=== PATIENT | male | born 1960 | race Caucasian/White ===

== ENCOUNTER 2021-11-17 13:30 | Oncology outpatient (recurring) (ONCR) | payer OTHER, SELFPAY | END 2021-12-13 23:59 | disposition home or self-care (01) | PROVIDERS: PCP Family Medicine; Visit Provider Internal Medicine Medical Oncology | DX: E83.110 Hereditary hemochromatosis (principal); D70.9 Neutropenia, unspecified; Z79.899 Other long term (current) drug therapy ==

== ENCOUNTER 2021-11-21 00:53 | Observation (INO) | payer OTHER, SELFPAY ==
[2021-11-21] VITALS (19 sets, daily range): BP systolic 89–201; BP diastolic 61–112; PULSE 82–93; RESP 12–18; TEMP 36.5–37.7; O2SAT 92–98; BMI 29.0
--- NOTE | 2021-11-21 01:18 | CTR_ITS ---
PROCEDURE INFORMATION: Exam: CT Abdomen And Pelvis Without Contrast Exam date and time: 11/21/2021 1:43 AM Age: 60 years old Clinical indication: Abdominal pain; Localized; Right lower quadrant (rlq); Additional info: Rlq pain TECHNIQUE: Imaging protocol: Computed tomography of the abdomen and pelvis without contrast. Radiation optimization: All CT scans at this facility use at least one of these dose optimization techniques: automated exposure control; mA and/or kV adjustment per patient size (includes targeted exams where dose is matched to clinical indication); or iterative reconstruction. COMPARISON: CR XR chest 2V* [id number] 09/07/2020 12:03 PM RADIATION DOSE METRICS: Total DLP (mGy-cm): 1442.9 FINDINGS: Lungs: The visualized lung bases demonstrate no focal airspace opacification or pleural effusion. Heart: Trace coronary artery calcifications noted. Liver: The liver is normal in size and contour. Gallbladder and bile ducts: The gallbladder is distended with normal wall thickness and does not demonstrate calcified gallstones. No intra- or extra-hepatic biliary ductal dilatation. Pancreas: The pancreas appears normal. Spleen: The spleen appears normal. Adrenal glands: The adrenals appear normal. Kidneys and ureters: The kidneys empty into non-dilated ureters. No renal or ureteral stones are identified. No perinephric or periureteral fat tissue stranding is identified. Stomach and bowel: The stomach is appropriately distended and without wall abnormalities. The small bowel loops are not abnormally dilated. The large bowel loops are not abnormally dilated. Appendix: 6 mm appendicoliths noted the base of the appendix. Possible additional 7 mm appendicoliths in the proximal portion of the appendix. The appendix is abnormally dilated measuring up to approximately 16 mm in diameter in the proximal portion. Appendiceal wall thickening in the proximal portion. Periappendiceal fat stranding. No adjacent fluid or free air identified. Intraperitoneal space: No ascites. Vasculature: The aorta is nonaneurysmal. The IVC appears normal. Lymph nodes: There are no enlarged lymph nodes. Urinary bladder: The bladder is distended and demonstrates no focal contour abnormality. Reproductive: The prostate is unremarkable. The seminal vesicles are unremarkable. Bones/joints: Review of the bone windows demonstrates no significant abnormality. Soft tissues: Unremarkable. CT/CT abdomen pelvis wo con [id number] IMPRESSION: Findings consistent with acute appendicitis. Appendicoliths noted at the base and proximal portion of the appendix. No signs of rupture. COMMENTS: Evaluation of solid organs and vascular structures is limited as no IV contrast was administered.
[2021-11-21 01:44] LABS: Basophils % 0.2 %; Eosinophils % 0.1 %; Hematocrit 49.5 % (42.0-52.0); Hemoglobin 17.7 g/dL (11.7-16.6); Lymphocytes # 0.9 10^3/uL (0.8-4.8); Lymphocytes % 7.1 %; Mean Corpuscular HGB Conc 35.8 g/dL (30.0-36.0); Mean Corpuscular Hemoglobin 33.3 pg (28.0-34.0); Mean Corpuscular Volume 93.2 fl (80-94); Mean Platelet Volume 9.8 fL (7.4-10.4); Monocytes # 0.7 10^3/uL (0.2-0.9); Monocytes % 5.3 %; Neutrophils # 10.67 10^3/uL (1.8-7.7); Neutrophils % 87.1 %; Nucleated Red Blood Cells % 0 %; Platelet Count 224 10^3/cmm (130-400); Red Blood Count 5.31 10^6/uL (4.1-5.3); Red Cell Distribution Width 12.6 % (12.1-15.1); White Blood Count 12.3 10^3/uL (4.0-10.0)
--- NOTE | 2021-11-21 01:49 | W.ED.ABDPA2 ---
HPI - Abdominal Pain General: Chief Complaint: Abdominal Pain Stated Complaint: ABD/Side pain/fever Time Seen by Provider: 11/21/21 01:07 Source: patient and family History of Present Illness: 60-year-old gentleman with no prior history of belly surgery. He presents with significant right-sided belly pain. He notes that he had some pain last night, this increased today, and he started to vomit after moravian. He has had several episodes of vomiting. No fever. He has chronic diarrhea on and off, so there has been no change in stool. Pain localized to the right lower quadrant. he is quite tender. MD elicited complaint: abdominal pain Pertinent past history: none Onset (ago): hour(s) (24) Location: RLQ Severity: moderate Radiation: RLQ Migration to: no migration Exacerbating factors: nothing Relieving factors: nothing Associated Symptoms: Reports loose stools (Chronic), nausea and vomiting; Denies coffee ground emesis, constipation, dyspepsia, fever(s) and fecal incontinence Review of Systems Const: Denies: fever(s) Card: Denies: chest pain, palpitations or irregular heart rhythm Resp: Denies: dyspnea, productive cough or non-productive cough GI: Reports: nausea and vomiting; Denies: coffee ground emesis, constipation or fecal incontinence Musc: Denies: back pain PFSH ED PFSH: Medical History 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 Surgical History H/O arthroscopic knee surgery H/O eye surgery Left eye - muscle in eye ajusted Family History Mother Cancer Lymphoma Hypertension Denies family history of Diabetes CAD (coronary artery disease) Clotting disorder Dementia Hyperlipidemia Psychiatric illness Chronic kidney disease (CKD) Suicide Anesthesia complication Bleeding disorder Lung disease Stroke Social History Smoking and tobacco status: never smoked Alcohol intake: current Alcohol intake frequency: holidays/special occasions only Physical Exam Const: GENERAL APPEARANCE: cooperative, in distress (Mild from pain) and ill appearing ORIENTATION/CONSCIOUSNESS: Yes awake, Yes oriented to person, Yes oriented to place and Yes oriented to time HENMT: COMMON NORMALS: normocephalic, atraumatic and Normal external nose present HEAD & SCALP: normocephalic and atraumatic FACE & SINUS: normal facial exam NOSE: Normal external nose present Eye: COMMON NORMALS: Equal, round and reactive pupils present and EOMs intact bilaterally PUPIL: Yes Equal, round and reactive pupils present Neck/C-Spine: GENERAL: Yes trachea midline Chest: CHEST: Yes Symmetrical chest wall rise Resp: COMMON NORMALS: normal respiratory effort and No use of accessory muscles Cardio: COMMON NORMALS: regular rate and regular rhythm RATE: regular rate RHYTHM: regular rhythm GI: INSPECTION: Yes abdominal distension PALPATION: Yes Firmness to palpation present (GI) and Yes Tenderness to palpation present (GI) Details: RLQ : COMMON NORMALS: Yes no CVA tenderness BLADDER/KIDNEY EXAM: Yes no CVA tenderness Back/Pelvis: COMMON NORMALS: no CVA tenderness Extremity: COMMON NORMALS: no pedal edema Neuro: SENSORIUM/ORIENTATION: Yes oriented to person, Yes oriented to place and Yes oriented to time Course Vital Signs: Vital signs: Vital Signs Temperature 98.3 F 11/21/21 01:01 Pulse Rate 87 11/21/21 03:30 Respiratory Rate 16 11/21/21 03:30 Blood Pressure 139/83 11/21/21 03:30 Pulse Oximetry 98 11/21/21 03:30 MDM - Abdominal Pain Medical Decision Making 60-year-old gentleman with right lower quadrant pain, white blood cell count of 12.3. He is hemodynamically stable. In fact, he is a bit hypertensive. Blood pressure improved to 140/[address] consistent with acute appendicitis with a 16mm dilated appendix. No signs of rupture. Surgeon is aware. He will be observed. Lab Data : 11/21/21 01:30 11/21/21 03:00 Labs/Radiology: Radiology Impressions Abdomen/Pelvis CT 11/21/21 01:18 IMPRESSION: Findings consistent with acute appendicitis. Appendicoliths noted at the base and proximal portion of the appendix. No signs of rupture. COMMENTS: Evaluation of solid organs and vascular structures is limited as no IV contrast was administered. ADDENDUM: 11/21/21 0328 THIS REPORT CONTAINS FINDINGS THAT MAY BE CRITICAL TO PATIENT CARE. The findings were verbally communicated via telephone conference with MARIO Mendoza at 3:26 AM CDT on 11/21/2021. The findings were acknowledged and understood. Laboratory Results WBC 12.3 10^3/uL (4.0-10.0) H 11/21/21 01:30 RBC 5.31 10^6/uL (4.1-5.3) H 11/21/21 01:30 Hgb 17.7 g/dL (11.7-16.6) H 11/21/21 01:30 Hct 49.5 % (42.0-52.0) 11/21/21 01:30 MCV 93.2 fl (80-94) 11/21/21 01:30 MCH 33.3 pg (28.0-34.0) 11/21/21 01:30 MCHC 35.8 g/dL (30.0-36.0) 11/21/21 01:30 RDW 12.6 % (12.1-15.1) 11/21/21 01:30 Plt Count 224 10^3/cmm (130-400) 11/21/21 01:30 MPV 9.8 fL (7.4-10.4) 11/21/21 01:30 Neut % (Auto) 87.1 % 11/21/21 01:30 Lymph % (Auto) 7.1 % 11/21/21 01:30 [place] % (Auto) 5.3 % 11/21/21 01:30 Eos % (Auto) 0.1 % 11/21/21 01:30 Baso % (Auto) 0.2 % 11/21/21 01:30 Neut # (Auto) 10.67 10^3/uL (1.8-7.7) H 11/21/21 01:30 Lymph # (Auto) 0.9 10^3/uL (0.8-4.8) 11/21/21 01:30 [place] # (Auto) 0.7 10^3/uL (0.2-0.9) 11/21/21 01:30 Eos # (Auto) 0.0 10^3/uL (0.0-0.8) 11/21/21 01:30 Baso # (Auto) 0.0 10^3/uL (0.0-0.1) 11/21/21 01:30 Nucleated RBC % (auto) 0 % 11/21/21 01:30 Nucleated RBCs # 0.0 /100WBC 11/21/21 01:30 Sodium Cancelled 11/21/21 01:30 Potassium 4.7 mmol/L (3.5-5.1) 11/21/21 03:00 Chloride 99 mmol/L (98-107) 11/21/21 03:00 Carbon Dioxide 26 mmol/L (22-29) 11/21/21 03:00 Anion Gap 14.7 (5-19) 11/21/21 03:00 BUN 10 mg/dL (8-23) 11/21/21 03:00 Creatinine 0.8 mg/dL (0.7-1.2) 11/21/21 03:00 GFR Calculation 98.3 mL/min (90-130) 11/21/21 03:00 Glucose Cancelled 11/21/21 01:30 Calculated Osmolality Cancelled 11/21/21 01:30 Lactate 1.5 mmol/L (0.5-2.2) 11/21/21 01:30 Calcium 8.7 mg/dL (8.5-10.5) 11/21/21 03:00 Total Bilirubin 0.6 mg/dL (0.15-1.2) 11/21/21 03:00 AST Cancelled 11/21/21 01:30 ALT Cancelled 11/21/21 01:30 Alkaline Phosphatase 88 IU/L (40-130) 11/21/21 03:00 C-Reactive Protein Cancelled 11/21/21 01:30 Total Protein 7.0 g/dL (6.6-8.7) 11/21/21 03:00 Albumin 4.3 g/dL (3.5-5.2) 11/21/21 03:00 Globulin 2.7 g/dL (1.3-4.6) 11/21/21 03:00 Lipase Cancelled 11/21/21 01:30 Discharge Plan Discharge Condition: Stable Prescriptions: No Action No Known Home Medications 0RF Referrals: Landen Schofield MD [Primary Care Provider] - Coding Level of Care Code ED Tire Balancer for Chg Fwd Exam Comprehensive
[2021-11-21] MEDS: morphine 4 mg/mL SDV 1 mL IVP ×2 (01:53→05:26)
[2021-11-21] MEDS: ondansetron 2 mg/ML SDV 2 mL 4 MG IVP (01:53)
[2021-11-21] MEDS: sodium chloride 0.9% 1,000 ML 999 ML IV (01:54)
[2021-11-21 02:09] LABS: Lactate (Lactic Acid level) 1.5 mmol/L (0.5-2.2)
[2021-11-21 03:22] LABS: Alanine Aminotransferase 54 U/L (0-41); Albumin Level 4.3 g/dL (3.5-5.2); Alkaline Phosphatase 88 IU/L (40-130); Anion Gap 14.7 (5-19); Aspartate Amino Transferase 41 U/L (0-40); Blood Urea Nitrogen 10 mg/dL (8-23); C Reactive Protein 11.2 mg/L (0.0-4.9); Calcium 8.7 mg/dL (8.5-10.5); Carbon Dioxide 26 mmol/L (22-29); Chloride 99 mmol/L (98-107); Globulin 2.7 g/dL (1.3-4.6); Glomerular Filtration Rate 98.3 mL/min (90-130); Glucose 118 mg/dL (65-115); Lipase 186 U/L (13-60); Osmolality Calculated 280 mOsm/kg (285-295); Potassium 4.7 mmol/L (3.5-5.1); Sodium 135 mmol/L (136-145); Total Bilirubin 0.6 mg/dL (0.15-1.2)
--- NOTE | 2021-11-21 03:30 | ECG_ITS ---
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 Measurements Intervals [place] Rate: 87 P: 51 TX: 127 QRS: -16 QRSD: 110 T: 20 QT: 344 QTc: 415 Interpretive Statements SINUS RHYTHM INCOMPLETE RIGHT BUNDLE BRANCH BLOCK [90+ ms QRS DURATION, TERMINAL R IN V1/V2, 40+ ms S IN I/aVL/V4/V5/V6] No previous ECG available for comparison Electronically Signed On 11-21-2021 21:34:38 CDT by Richard Gordon M.D. [id number]
[2021-11-21] MEDS: enalaprilat 1.25 mg/mL Inj IVP (03:36)
[2021-11-21] MEDS: piperacillin-tazobactam 3.375 GM in sodium chloride 0.9% (plus) 100 ML IV (04:02)
[2021-11-21] MEDS: lactated ringers 1,000 ML 125 ML IV ×4 (05:27→22:03)
--- NOTE | 2021-11-21 05:50 | PM.HP ---
Providers/Chief Complaint Admitting Physician: Jose Rios MD Primary Care Provider: Landen Schofield MD Chief Complaint: ABD/Side pain/fever History of Present Illness Mr. Roly Cabral Jr is a pleasant 60 year old male presents to the emergency department with acute onset of abdominal pain that started about 8:00 in the morning when he went to gnosticism yesterday, pain was mostly sharp in nature and not being referred and was more on the right side. Associated with nausea and vomiting and low-grade temperature and denies any dysuria or change in bowel habit, as the pain got worse came to the emergency department and blood work showed leukocytosis of 12,000+ slight elevation of AST and ALT. CT scan of the abdomen pelvis was obtained and showed acute appendicitis Findings consistent with acute appendicitis. Appendicoliths noted at the base and proximal portion of the appendix. No signs of rupture. Patient is otherwise healthy except for recently diagnosed by high blood pressure and he did have eye surgery in the past. He never had a colonoscopy but he gets the stool studies every year. Denies history of colon cancer in the family General surgery was consulted for further evaluation management Review of Systems General: Reports: 10 or more systems reviewed and unremarkable except in HPI and below Medications/Allergies Home Medications Medication Instructions Recorded Confirmed Last Taken Type No Known Home Medications 11/15/21 11/15/21 Unknown History Allergies Allergy/AdvReac Type Severity Reaction Status Date / Time No Known Allergies Allergy Verified 11/14/21 11:34 PFSH Acute PFSH: Medical History 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 Surgical History H/O arthroscopic knee surgery H/O eye surgery Left eye - muscle in eye ajusted Family History Mother Cancer Lymphoma Hypertension Denies family history of Diabetes CAD (coronary artery disease) Clotting disorder Dementia Hyperlipidemia Psychiatric illness Chronic kidney disease (CKD) Suicide Anesthesia complication Bleeding disorder Lung disease Stroke Social History Smoking and tobacco status: never smoked Alcohol intake: current Alcohol intake frequency: holidays/special occasions only Vitals/I&O/Wt Last Vital Signs Temp 98.7 F 11/21/21 04:59 Pulse 85 11/21/21 04:59 Resp 18 11/21/21 05:26 BP 145/91 11/21/21 04:59 Pulse Ox 97 11/21/21 05:26 11/20/21 11/20/21 11/21/21 14:59 22:59 06:59 Intake Total 100 / 100 Balance 100 / 100 Weight last 48 hrs Weight 180 lb Physical Exam Const: COMMON NORMALS: no acute distress and patient oriented x3 GENERAL APPEARANCE: cooperative ORIENTATION/CONSCIOUSNESS: Yes awake, Yes oriented to person, Yes oriented to place and Yes oriented to time HENMT: COMMON NORMALS: normocephalic HEAD & SCALP: normocephalic Eye: COMMON NORMALS: Equal, round and reactive pupils present and no scleral icterus PUPIL: Yes Equal, round and reactive pupils present Lymph: LYMPHATIC: no lymphadenopathy noted Chest: COMMONS NORMALS: normal inspection of the chest Resp: COMMON NORMALS: normal respiratory effort and clear to auscultation bilaterally AUSCULTATION: clear to auscultation bilaterally Cardio: COMMON NORMALS: S1 normal heart sound present and S2 normal heart sound present; negative for No murmurs present (Cardio) HEART SOUNDS: S1 normal heart sound present and S2 normal heart sound present GI: COMMON NORMALS: Soft to palpation; negative for No hepatosplenomegaly present INSPECTION: Yes normal to inspection PALPATION: Yes Soft to palpation, No Firmness to palpation present (GI), Yes Tenderness to palpation present (GI) Details: RLQ (With localized rigidity and guarding at McBurney's point), No Guarding due to palpation present (GI), No Rigid due to palpation and No No hepatosplenomegaly present Neuro: COMMON NORMALS: patient oriented x3 SENSORIUM/ORIENTATION: Yes oriented to person, Yes oriented to place and Yes oriented to time Psych: COMMON NORMALS: mental status grossly normal Skin: COMMON NORMALS: no rashes or lesions noted GENERAL SKIN EXAM: no rashes or lesions noted Data : 11/21/21 01:30 11/21/21 03:00 A&P Assessment and plan (1) Acute appendicitis: After thorough history physical examination and reviewing the chart and images with my personal interpretion, I counseled the patient for laparoscopic appendectomy possible open. Indications, risks, benefits and alternatives were all discussed with the patient and did agree to proceed. Rationale was carefully and clearly discussed with the patient.Appropriate informed consent have been reviewed and signed Patient was advised to have a colonoscopy down the road after he recovers Status: Acute Attestations Medical Necessity Statement*: Observation status for perioperative care Coding Level of Care Code Acute Hogshead Stripper for [facility] Fwd Diagnoses Acute appendicitis K35.80
[2021-11-21] MEDS: sodium chloride 0.9% 1,000 ML 30 ML (06:35)
--- NOTE | 2021-11-21 06:37 | ANES.PREANE2 ---
Pre-Anesthetic Assessment Height/Weight: Height 1.68 m Weight 81.647 kg Temp Pulse Resp BP Pulse Ox 99.8 F H 93 18 127/82 95 11/21/21 06:32 11/21/21 06:32 11/21/21 06:32 11/21/21 06:32 11/21/21 06:32 Operation Date: 11/21/21 09:15 Proposed Procedures p Laparoscopic Appendectomy(Not Applicable) - Jose Rios MD Familial anesthetic complications: None Was Beta [place] taken within 24 hours: N/A Was Clonidine taken within 24 hours: N/A Last intake: Intake Last Liquid Date 11/20/21 Last Liquid Time 23:00 Last Solid Date 11/20/21 Last Solid Time 09:00 Social No alcohol and No tobacco Exam alert, oriented x 3, clear to auscultation bilaterally and regular rate & rhythm Airway Submandibular: within normal limits Cervical ROM: within normal limits Mallampati: Class II Dentition: full Comments: Comments: James CV/HEM hemachromatosis GI acute abdomen Anesthetic Plan ASA status: 2 Anesthesia: General Medications/Allergies Home Medications Medication Instructions Recorded Confirmed Last Taken Type No Known Home Medications 11/15/21 11/15/21 Unknown History Allergies Allergy/AdvReac Type Severity Reaction Status Date / Time No Known Allergies Allergy Verified 11/14/21 11:34 Current Medications Generic Name Dose Route Start Last Admin Trade Name Freq PRN Reason Stop Dose Admin Lactated Ringer's 1,000 mls @ 125 mls/hr 11/21/21 04:59 11/21/21 05:27 Lactated Ringers IV 125 mls/hr .Q8H ALMAZ Administration Morphine Sulfate 4 mg 11/21/21 04:59 11/21/21 05:26 Morphine 4 Mg/Ml Sdv 1 Ml IVP 4 mg Q2H PRN Administration SEVERE PAIN PFSH Anesthesia Medical History 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 Surgical History H/O arthroscopic knee surgery H/O eye surgery Left eye - muscle in eye ajusted Family History Mother Cancer Lymphoma Hypertension Denies family history of Diabetes CAD (coronary artery disease) Clotting disorder Dementia Hyperlipidemia Psychiatric illness Chronic kidney disease (CKD) Suicide Anesthesia complication Bleeding disorder Lung disease Stroke Social History Smoking and tobacco status: never smoked Alcohol intake: current Alcohol intake frequency: holidays/special occasions only Data Anesthesia : 11/21/21 01:30 11/21/21 03:00 Short CBC 11/21/21 Range/Units 01:30 WBC 12.3 H (4.0-10.0) 10^3/uL Hgb 17.7 H (11.7-16.6) g/dL Hct 49.5 (42.0-52.0) % MCV 93.2 (80-94) fl Plt Count 224 (130-400) 10^3/cmm Neut % (Auto) 87.1 % Neut # (Auto) 10.67 H (1.8-7.7) 10^3/uL BMP 11/21/21 11/21/21 01:30 03:00 Sodium Cancelled 135 L Potassium Cancelled 4.7 Chloride Cancelled 99 Carbon Dioxide Cancelled 26 BUN Cancelled 10 Creatinine Cancelled 0.8 Glucose Cancelled 118 H Calcium Cancelled 8.7 Liver Function 11/21/21 11/21/21 Range/Units 01:30 03:00 Total Bilirubin Cancelled 0.6 AST Cancelled 41 H ALT Cancelled 54 H Alkaline Phosphatase Cancelled 88 Albumin Cancelled 4.3 Coags 11/21/21 11/21/21 01:30 03:00 C-Reactive Protein Cancelled 11.2 H Cardiac Studies: No Data to Display
--- NOTE | 2021-11-21 06:50 | SUR.PHASEI ---
0630 PT TO OPS BAY 8 PT AWAKE ALERT AMBULATED TO BED, VSS IV TO LT WRIST #18 PATENT . PT VSS STABLE. BED LOCKED SIDE RAILS UP X2 CALL LIGHT WITHIN REACH, CONTINOUS O2 SAT PROBE ON. DR ACOSTA AT BEDSIDE. 0645 PT CARE ASSUMED BY GRAHAM BECKMAN IN OPS SURGERY, PT DOZING WITHOUT COMPLAINT.
[2021-11-21] MEDS: acetaminophen 1,000 MG/100 ML PIGGYBACK 400 MG IV (07:47)
[2021-11-21] MEDS: lidocaine 2% INJ 20 mL INJECTION (08:08)
--- NOTE | 2021-11-21 08:45 | P.OP_ITS ---
Operative Report Date of procedure: November 21, 2021 Pre-op diagnosis: Preop Diagnosis Acute appendicitis Post-op diagnosis: Gangrenous retrocecal appendicitis Procedure done: Laparoscopic appendectomy Specimens removed/disposition: Appendix Surgeon: Jose Rios MD Treasury Specialist: Surgical rubi Dc Located the nurse Venkatesh Quevedo Anesthesia: General (TRISH Ramirez) Estimated blood loss (mL): 10 IV fluids (mL): 1,000 Procedure: Patient after being identified in the holding area and asked to void urine, and informed consent per chart ,patient was then taken back to the OR placed in supine position got intubated by anesthesia left arm was tucked tucked ,Timeout was done verifying the patient's name/date of /planned procedure and destination after the procedure, all were in agreement., preoperative antibiotics administered per protocol. prep and drape of the abdomen was done under the usual sterile technique. Started by longitudinal skin incision supraumbilical using a De La Fuente trocar tech nique safe entry to the abdominal cavity was achieved verified by using 10 mm zero degree laparoscopy, switched to a 30? scope under direct visualization a suprapubic 5 mm trocar was inserted followed by another 5 mm trocar inserted in the left lower quadrant.I was able to position the patient in an T Rebollar and left side down, dissection of the prececal acutely inflamed appendix with gangrenous changes towards the distal two thirds of the appendix there was some adhesions towards the lateral pelvic wall that was taken down by sharp and blunt dissection, attention was deviated to the healthy base of the appendix where I had to switch the camera to 5 mm 30? scope got introduced through the left lower quadrant and through the De La Fuente trocar under direct visualization a GI stapler 45 mm blue load was applied at the healthy part of the base of the appendix, and an Endoloop PDS was applied onto the mesoappendix for control , the appendix was then retrieved in an Endo Catch bag, final survey was done of the abdomen and pelvis , irrigation with warm saline, and suction was obtained, were mercury fluid like in the pelvis due to reaction from the inflamed appendix. Few 5 mm clips were applied onto the mesoappendix as well as the appendectomy staple line and a right lateral pelvic wall for minimal oozing. Final look laparoscopy was done showing no other abnormalities or injuries, all trocars were taken out under direct visualization after the supraumblical trocar site was closed by #1 PDS sutures under direct vision using fascial closure device ,followed by skin closure using skinof all trocar site incisions.nfiltration of local lidocaine 2% was done to all incision sites.Dry dressing was applied. Count was completed at the end of the procedure for Orange , sponges and instruments Patient tolerated the procedure well and was transferred to the recovery area after extubation. I was present for the whole entire procedure
--- NOTE | 2021-11-21 09:30 | SUR.PHASEI ---
0915 [facility] [place] [facility] a pump and working.
[2021-11-21] MEDS: piperacillin-tazobactam 3.375 GM in dextrose 5% (plus) 50 ML IV ×2 (12:58→21:45)
--- NOTE | 2021-11-21 13:40 | ANE.PACU2 ---
Inpatient post-anesthesia follow up: Airway intact: Yes Vital signs: Temperature 98.5 F Pulse Rate 82 Respiratory Rate 12 Blood Pressure 130/79 Pulse Oximetry 94 Oxygen Delivery Me thod Room Air Oxygen Flow Rate 3 Fraction of Inspir ed Oxygen Hydration adequate: Yes Nausea and vomiting: No Pain level: 3 Mental status: Baseline
[2021-11-21] MEDS: HYDROcodone-acetaminophen 5-325 mg Tablet 1 TAB PO (21:47)
[2021-11-22] VITALS: BP 136/78; PULSE 89; RESP 17; TEMP 36.9; O2SAT 92
[2021-11-22 04:00] VITALS: BP 150/89; PULSE 71; RESP 17; TEMP 36.8; O2SAT 94
[2021-11-22] MEDS: piperacillin-tazobactam 3.375 GM in dextrose 5% (plus) 50 ML IV ×3 (05:37→22:27)
[2021-11-22] MEDS: lactated ringers 1,000 ML 125 ML IV (05:39)
[2021-11-22] MEDS: HYDROcodone-acetaminophen 5-325 mg Tablet 1 TAB PO ×3 (05:53→20:47)
[2021-11-22 06:47] LABS: Basophils % 0.1 %; Hematocrit 44.7 % (42.0-52.0); Hemoglobin 15.2 g/dL (11.7-16.6); Lymphocytes # 0.9 10^3/uL (0.8-4.8); Lymphocytes % 7.8 %; Mean Corpuscular Hemoglobin 33.6 pg (28.0-34.0); Mean Corpuscular Volume 98.7 fl (80-94); Mean Platelet Volume 9.5 fL (7.4-10.4); Monocytes # 0.7 10^3/uL (0.2-0.9); Monocytes % 5.6 %; Neutrophils # 10.14 10^3/uL (1.8-7.7); Neutrophils % 86.2 %; Nucleated Red Blood Cells % 0 %; Platelet Count 179 10^3/cmm (130-400); Red Blood Count 4.53 10^6/uL (4.1-5.3); Red Cell Distribution Width 13.1 % (12.1-15.1); White Blood Count 11.8 10^3/uL (4.0-10.0)
[2021-11-22 07:04] LABS: Anion Gap 14.4 (5-19); Blood Urea Nitrogen 12 mg/dL (8-23); Calcium 8.6 mg/dL (8.5-10.5); Carbon Dioxide 22 mmol/L (22-29); Chloride 102 mmol/L (98-107); Glucose 109 mg/dL (65-115); Osmolality Calculated 278 mOsm/kg (285-295); Potassium 4.4 mmol/L (3.5-5.1); Sodium 134 mmol/L (136-145)
[2021-11-22 08:00] VITALS: BP 134/84; PULSE 62; RESP 13; TEMP 36.4; O2SAT 95
--- NOTE | 2021-11-22 09:42 | PM.PN ---
Subjective Subjective: Patient overall feels a whole lot better. Adequate urine output. Trending down leukocytosis. Patient started passing gas Medications: Reviewed: Yes Vitals/I&O/Wt Last Vital Signs Temp 97.6 F 11/22/21 08:00 Pulse 62 11/22/21 08:00 Resp 13 11/22/21 08:00 BP 134/84 11/22/21 08:00 Pulse Ox 95 11/22/21 08:00 11/21/21 11/22/21 11/22/21 22:59 06:59 14:59 Intake Total 2181.250 / 4291.667 1150 / 5441.667 360 / 360 Balance 2181.250 / 4281.667 1150 / 5431.667 360 / 360 Weight last 48 hrs Weight 180 lb Physical Exam Narrative: Patient is conscious alert oriented X3 No apparent distress BMI 29.1 Head and neck examination PERRLA no masses no cervical lymphadenopathy no jaundice Cardiac examination audible S1-S2 no murmurs no gallops no arrhythmias Chest is clear bilateral,abscence of Rhonchi or wheezes,no surgical emphysema Abdomen nontender nondistended soft no organomegaly guarding or rigidity/no signs of peritonitis Dry dressing Extremities no cyanosis no clubbing no edema Data : 11/22/21 06:17 11/22/21 06:17 A&P Assessment and plan (1) Acute appendicitis: Assessment 60 years old gentleman status post laparoscopic appendectomy 11/21/2021 Plan Advance to full liquid diet Encourage ambulation Incentive spirometer every hour Continue broad-spectrum IV antibiotic Follow on a.m. lab Status: Resolved Attestations Medical Necessity Statement*: Observation status for perioperative care and continuation of parenteral antimicrobial therapy for gangrenous appendicitis Coding Level of Care Code Acute Fiscal Services Director for [facility] Fwd Diagnoses Acute appendicitis K35.80
[2021-11-22 11:34] VITALS: BP 155/90; PULSE 58; RESP 14; TEMP 36.6; O2SAT 95
--- NOTE | 2021-11-22 14:24 | PC.CHAP ---
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 [] Patient/Family/Request visit [] Outpatient visit [] Follow-up visit [] Physician referral [] Code/Alert [X] Routine visit [] Staff referral [] Actively dying [] Patient sleeping [] Family support [] [] Out of room [] Palliative care [] [] Receiving care in room [] Pre-surgical visit [] Trauma [] Long length of stay [] ICU visit [] Other: Relational/Emotional Strength [X] Patient feels connected with others/family/visitors/staff [] Distress [] Loneliness/isolation [] Abandonment Spirituality of Patient [X] Person of Maddy [X] Attends Methodist of their Maddy [X] Believes in Prayer [X] Reads Bible or Jain materials [] There are Spiritual issues to be addressed [employer] Interventions [X] Prayer [X] Active listening [X] Non-anxious presence []X Spiritual/emotional support [X] Crisis/trauma care [] Spiritual counseling [] Bereavement support [] Provided bereavement packet [] Provided Bible/devotional materials [] Provided toy/stuffed animal, coloring book to patient or family member [] Provided Communion [] Anointing/[place] [] Salvation [X] Completed spiritual assessment [] Other: Impact on Illness or Injury [] Angry [] Fearful [] Anxious [] Often cries [] Exhaustion [] Unable to work [] Unable to attend mosque [] Unable to walk/stand [] Unable to read [] Unable to drive [] Unable to eat/drink [] Unable to sleep [] Unable to be with family [] Patient intubated [] Other: Summary Time spent with patient 25 MIN
[2021-11-22 15:52] VITALS: BP 166/99; PULSE 68; RESP 14; TEMP 37; O2SAT 95
[2021-11-22 20:00] VITALS: BP 150/90; PULSE 81; RESP 18; TEMP 37.1; O2SAT 94
--- NOTE | 2021-11-22 20:55 | PC.NURSE ---
PATIENT CALLED THIS RN INTO ROOM AT THIS TIME TO REPORT CONCERN THAT HIS IV FLUIDS AND IV ANTIBIOTIC WAS MAKING HIS ARM AND SHOULDER HURT. THIS RN STOPPED BOTH IV FLUIDS AND IV ANTIBIOTIC AT THIS TIME TO INSPECT PATIENT IV AND ARM. IV APPEARED TO BE INTACT AND FLUSHING WITH NO DIFFICULTY. PATIENT EXPLAINED HIS PAIN IN MORE DETAIL WHEN THIS RN EXPLAINED TO HIM THAT HIS IV WAS FINE AND INTACT. PATIENT DESCRIBED HIS PAIN AT MORE IN THE MUSCLE ON HIS RIGHT SHOULDER. PATIENT DENIES CHEST AIN AND NO SHORTNESS OF BREATH IS NOTED. PRN HYDROCODONE GIVEN PER PATIENTS REQUEST AT THIS TIME. PATIENT STATED THAT WHEN HE SAT ON THE SIDE OF THE BED AND STARTED STRETCHING HIS RIGHT ARM THE PAIN SUBSIDED A BIT. THIS RN REMINDED PATIENT TO CALL IF PAIN GOT WORSE OR IF PRN PAIN MEDICATION WAS NOT WORKING. PATIENT VERBALIZED UNDERSTANDING.
[2021-11-23] VITALS: BP 144/84; PULSE 77; RESP 18; TEMP 37.2; O2SAT 96
[2021-11-23] MEDS: HYDROcodone-acetaminophen 5-325 mg Tablet 1 TAB PO ×2 (02:24→10:08)
[2021-11-23 02:41] LABS: Basophils % 0.2 %; Eosinophils # 0.1 10^3/uL (0.0-0.8); Eosinophils % 0.7 %; Hematocrit 44.3 % (42.0-52.0); Hemoglobin 14.7 g/dL (11.7-16.6); Lymphocytes # 1.3 10^3/uL (0.8-4.8); Mean Corpuscular HGB Conc 33.2 g/dL (30.0-36.0); Mean Corpuscular Hemoglobin 32.7 pg (28.0-34.0); Mean Corpuscular Volume 98.7 fl (80-94); Mean Platelet Volume 9.5 fL (7.4-10.4); Monocytes # 0.6 10^3/uL (0.2-0.9); Monocytes % 6.8 %; Neutrophils # 7.07 10^3/uL (1.8-7.7); Neutrophils % 77.9 %; Nucleated Red Blood Cells % 0 %; Platelet Count 174 10^3/cmm (130-400); Red Blood Count 4.49 10^6/uL (4.1-5.3); Red Cell Distribution Width 12.9 % (12.1-15.1); White Blood Count 9.1 10^3/uL (4.0-10.0)
[2021-11-23 03:02] LABS: Anion Gap 14.1 (5-19); Blood Urea Nitrogen 13 mg/dL (8-23); Calcium 8.6 mg/dL (8.5-10.5); Carbon Dioxide 23 mmol/L (22-29); Chloride 100 mmol/L (98-107); Glomerular Filtration Rate 114.6 mL/min (90-130); Glucose 106 mg/dL (65-115); Osmolality Calculated 277 mOsm/kg (285-295); Potassium 4.1 mmol/L (3.5-5.1); Sodium 133 mmol/L (136-145)
[2021-11-23 04:00] VITALS: BP 135/88; PULSE 74; RESP 17; TEMP 36.8; O2SAT 93
[2021-11-23] MEDS: piperacillin-tazobactam 3.375 GM in dextrose 5% (plus) 50 ML IV (05:28)
[2021-11-23 07:39] VITALS: BP 157/97; PULSE 71; RESP 17; TEMP 37; O2SAT 95
--- NOTE | 2021-11-23 09:30 | PM.SDS ---
Short Stay Summary Providers Date of Admit/Discharge: 11/23/21 Attending Provider: Jose Rios MD Primary Care Provider: Landen Schofield MD Chief Complaint: ABD/Side pain/fever HPI History of Present Illness Mr. Roly Cabral Jr is a pleasant 60 year old male presents to the emergency department with acute onset of abdominal pain that started about 8:00 in the morning when he went to congregational yesterday, pain was mostly sharp in nature and not being referred and was more on the right side.? Associated with nausea and vomiting and low-grade temperature and denies any dysuria or change in bowel habit, as the pain got worse came to the emergency department and blood work showed leukocytosis of 12,000+ slight elevation of AST and ALT. CT scan of the abdomen pelvis was obtained and showed acute appendicitis Findings consistent with acute appendicitis. Appendicoliths noted at the base and proximal portion of the appendix. No signs of rupture. Patient is otherwise healthy except for recently diagnosed by high blood pressure and he did have eye surgery in the past.? He never had a colonoscopy but he gets the stool studies every year.? Denies history of colon cancer in the family General surgery was consulted for further evaluation management, patient was kept in observation status and undergone uneventful laparoscopic appendectomy Review of Systems General: Reports: 10 or more systems reviewed and unremarkable except in HPI and below Home Meds/Allergies Home Medications and Allergies Home Medications Medication Instructions Recorded Confirmed Type aspirin 81 mg tablet,delayed 81 mg PO QAM 11/21/21 11/21/21 History release multivitamin 1 tab PO DAILY 11/21/21 11/21/21 History sildenafil 100 mg tablet 100 mg PO DAILY PRN 11/21/21 11/21/21 History Allergies Allergy/AdvReac Type Severity Reaction Status Date / Time No Known Allergies Allergy Verified 11/23/21 17:20 PFSH Acute PFSH: Medical History 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 Surgical History H/O arthroscopic knee surgery H/O eye surgery Left eye - muscle in eye ajusted Family History Mother Cancer Lymphoma Hypertension Denies family history of Diabetes CAD (coronary artery disease) Clotting disorder Dementia Hyperlipidemia Psychiatric illness Chronic kidney disease (CKD) Suicide Anesthesia complication Bleeding disorder Lung disease Stroke Social History Smoking and tobacco status: never smoked Alcohol intake: current Alcohol intake frequency: holidays/special occasions only Vitals/I&O/Wt Last Vital Signs Temp 98.6 F 11/23/21 07:39 Pulse 71 11/23/21 07:39 Resp 17 11/23/21 07:39 BP 157/97 11/23/21 07:39 Pulse Ox 95 11/23/21 07:39 11/22/21 11/23/21 11/23/21 22:59 06:59 14:59 Intake Total 1050.000 / 2460.000 150 / 2610.000 480 / 480 Output Total 350 / 350 Balance 1050.000 / 2460.000 -200 / 2260.000 480 / 480 Physical Exam Narrative: Patient is conscious alert oriented X3 No apparent distress BMI 29.1 Head and neck examination PERRLA no masses no cervical lymphadenopathy no jaundice Cardiac examination audible S1-S2 no murmurs no gallops no arrhythmias Chest is clear bilateral,abscence of Rhonchi or wheezes,no surgical emphysema Abdomen nontender nondistended soft no organomegaly guarding or rigidity/no signs of peritonitis Incisions are clean dry and intact and skin mich in place Extremities no cyanosis no clubbing no edema Hospital Course Admission Diagnoses Acute appendicitis Hospital Course Patient undergone uneventful laparoscopic appendectomy for gangrenous appendicitis and was kept on parenteral antimicrobial therapy to normalization of WBC count. In the interim patient had appropriate pain control and continue to have stable vital signs and adequate urine output, tolerated p.o. intake and passed gas and had bowel movement. Patient met the appropriate criteria for safe discharge home Discharge Summary Patient was discharged home on oral antimicrobial therapy for 10 days with the plan to follow-up with me in the office. Patient was educated about the importance to have a colonoscopy down the road as he never had one. SSS Data Data Completed and Pending: Completed Studies During Hospitalization Category Date Time Status CT abdomen pelvis wo con [id number] Urge nt Cat Scan 11/21/21 01:18 Completed Pathology: Surgic al [PTH] Routine Pth 11/21/21 08:28 Completed Pending at discharge Category Date Time Status ES surgery / GI i mages Routine Exams 11/21/21 07:00 Taken Urinalysis Stat Lab 11/21/21 01:18 Uncollected Procedures Performed: Laparoscopic appendectomy Specimens removed/disposition: Appendix Surgeon: Jose Rios MD Gasser Machine Operator: Surgical rubi Dc Located the nurse Venkatesh Quevedo Anesthesia: General (TRISH Ramirez) Estimated blood loss (mL): 10 IV fluids (mL): 1,000 Procedure: Patient after being identified in the holding area and asked to void urine, and informed consent per chart ,patient was then taken back to the OR placed in supine position got intubated by anesthesia left arm was tucked tucked ,Timeout was done verifying the patient's name/date of /planned procedure? and destination after the procedure, all were in agreement., preoperative antibiotics administered per protocol. prep and drape of the abdomen was done under the usual sterile technique. Started by longitudinal skin incision supraumbilical using a De La Fuente trocar technique safe entry to the abdominal cavity was achieved verified by using 10 mm zero degree laparoscopy, switched to a 30? scope under direct visualization a suprapubic 5 mm trocar was inserted followed by another 5 mm trocar inserted in the left lower quadrant.I was able to position the patient in an T Rebollar and left side down, dissection of the prececal acutely inflamed appendix with gangrenous changes towards the distal two thirds of the appendix there was some adhesions towards the lateral pelvic wall that was taken down by sharp and blunt dissection, attention was deviated to the healthy base of the appendix where I had to switch the camera to 5 mm 30? scope got introduced through the left lower quadrant and through the De La Fuente trocar under direct visualization a GI stapler 45 mm blue load was applied at the healthy part of the base of the appendix, and an Endoloop PDS was applied onto the mesoappendix for control , the appendix was then retrieved in an Endo Catch bag, final survey was done of the abdomen and pelvis , irrigation with warm saline, and suction was obtained, were mercury fluid like in the pelvis due to reaction from the inflamed appendix. Few 5 mm clips were applied onto the mesoappendix as well as the appendectomy staple line and a right lateral pelvic wall for minimal oozing. Final look laparoscopy was done showing no other abnormalities or injuries, all trocars were taken out under direct visualization after the supraumblical trocar site was closed by #1 PDS sutures under direct vision using fascial closure device ,followed by skin closure using skinof all trocar site incisions.nfiltration of local lidocaine 2% was done to all incision sites.Dry dressing was applied. Count was completed at the end of the procedure for [place] , sponges and instruments Patient tolerated the procedure well and was transferred to the recovery area after extubation. I was present for the whole entire procedure Diagnoses at Discharge Discharge Diagnosis (1) Acute appendicitis: Status: Resolved Discharge Plan Discharge Patient Disposition: Home Condition: Stable Prescriptions: New hydrocodone-acetaminophen 5-325 mg tablet 1 tab PO Q6H PRN (Reason: pain) Qty: 28 0RF amoxicillin-pot clavulanate 875-125 mg tablet 1 tab PO Q12H 10 Days Qty: 20 0RF Continued multivitamin Tablet 1 tab PO DAILY 0RF aspirin 81 mg Tablet,Delayed Release (Dr/Ec) 81 mg PO QAM 0RF sildenafil 100 mg tablet 100 mg PO DAILY PRN (Reason: Erectile Dysfunction) 0RF Discharge Orders: Discharge Order (Routine); Ordered 11/23/21 Ordered By: Jose Rios Referrals: Jose Rios MD [Physician] - 11/30/21 9:40 am (Return to surgery office in 1 week) Landen Schofield MD [Primary Care Provider] - 11/28/21 1:00 pm Discharge Diet: Advance as tolerated Discharge Activity: Limit activity as instructed Patient Instructions: Hydrocodone/Acetaminophen (By mouth) (Vicodin, [place], Lortab), Amoxicillin/Clavulanate Potassium (By mouth), Laparoscopic Appendectomy (GEN), Opioid Safety, Post Anesthesia Care Activity Restrictions/Additional Instructions: 1. Patient can shower after 48 hours from surgery 2. Remove Dermabond 7 to 10 days after surgery, if there is a secondary dressing can take down after 48 hours. 3. Up and walking as tolerated 4. Do not lift more than 5 pounds first 2 weeks after surgery and not more than 25 pounds 6 to 8 weeks after surgery. 5. Do not operate heavy machinery or drive while using pain medications. 6.Contact the office or return to the ER for worsening nausea vomiting fevers or chills, or noticing any redness around incision sites or discharge. 7. Avoid constipation 8. 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
[2021-11-23 11:08] VITALS: BP 153/91; PULSE 66; RESP 17; TEMP 36.3; O2SAT 94
== END 2021-11-23 11:58 | disposition home or self-care (01) ==
LOC: ER 03:38 → MEDSURG 06:06
PROVIDERS: Admitting Provider Surgery; Emergency Provider Emergency Medicine; PCP Family Medicine; Visit Provider Surgery
PROC: 0DTJ4ZZ Resection of Appendix, Percutaneous Endoscopic Approach (ICD-10-PCS; CPT 44970; principal; 2021-11-21 08:55)
DX: K35.80 Unspecified acute appendicitis (principal)
CPT/HCPCS: 44970; 36415; 74176; 80048; 80053; 83605; 83690; 85025; 86140; 88304; 93005; 96365; 96366; 96375; 99285; G0378; J0330; J1100; J2270; J2370; J2405; J2543; J2704; J2710; J3010; J3490; J7030

== ENCOUNTER 2021-12-19 13:14 | Oncology outpatient (recurring) (ONCR) | payer OTHER, SELFPAY ==
[2021-12-19 13:55] VITALS: BP 142/87; PULSE 65; RESP 16; TEMP 36.2; O2SAT 96
[2021-12-19 14:03] LABS: Basophils % 0.2 %; Eosinophils # 0.2 10^3/uL (0.0-0.8); Eosinophils % 4.2 %; Hematocrit 44.7 % (42.0-52.0); Hemoglobin 15.5 g/dL (11.7-16.6); Lymphocytes % 23.5 %; Mean Corpuscular HGB Conc 34.7 g/dL (30.0-36.0); Mean Corpuscular Volume 95.3 fl (80-94); Mean Platelet Volume 9.5 fL (7.4-10.4); Monocytes # 0.4 10^3/uL (0.2-0.9); Monocytes % 9.1 %; Neutrophils # 2.69 10^3/uL (1.8-7.7); Neutrophils % 62.8 %; Nucleated Red Blood Cells % 0 %; Platelet Count 212 10^3/cmm (130-400); Red Blood Count 4.69 10^6/uL (4.1-5.3); Red Cell Distribution Width 11.9 % (12.1-15.1); White Blood Count 4.3 10^3/uL (4.0-10.0)
== END 2022-01-12 23:59 | disposition home or self-care (01) ==
LOC: ONCMED 13:14
PROVIDERS: PCP Family Medicine; Visit Provider Internal Medicine Medical Oncology
DX: E83.110 Hereditary hemochromatosis (principal)
CPT/HCPCS: 36415; 85025; 99195

== ENCOUNTER 2022-01-17 12:56 | Oncology outpatient (recurring) (ONCR) | payer OTHER, SELFPAY ==
[2022-01-17 13:40] LABS: Basophils % 0.5 %; Eosinophils # 0.1 10^3/uL (0.0-0.8); Eosinophils % 2.8 %; Hematocrit 42.5 % (42.0-52.0); Hemoglobin 14.8 g/dL (11.7-16.6); Lymphocytes # 1.3 10^3/uL (0.8-4.8); Lymphocytes % 29.4 %; Mean Corpuscular HGB Conc 34.8 g/dL (30.0-36.0); Mean Corpuscular Volume 94.7 fl (80-94); Mean Platelet Volume 9.5 fL (7.4-10.4); Monocytes # 0.5 10^3/uL (0.2-0.9); Monocytes % 11.7 %; Neutrophils # 2.42 10^3/uL (1.8-7.7); Neutrophils % 55.4 %; Nucleated Red Blood Cells % 0 %; Platelet Count 197 10^3/cmm (130-400); Red Blood Count 4.49 10^6/uL (4.1-5.3); Red Cell Distribution Width 12.6 % (12.1-15.1); White Blood Count 4.4 10^3/uL (4.0-10.0)
== END 2022-02-12 23:59 | disposition home or self-care (01) ==
PROVIDERS: PCP Family Medicine; Visit Provider Internal Medicine Medical Oncology
DX: E83.110 Hereditary hemochromatosis (principal)
CPT/HCPCS: 85025

== ENCOUNTER 2022-03-24 06:38 | Day surgery (SDC) | payer OTHER, SELFPAY ==
[2022-03-22 10:10] VITALS: BMI 29.0
--- NOTE | 2022-03-24 06:47 | W.PM.OPSFHP ---
Same Day Surgery H&P Indication for Procedure/HPI DATE OF PROCEDURE: March 24, 2022 CHIEF COMPLAINT/INDICATIONFOR SURGICAL PROCEDURE: Screening colonoscopy PREOP DIAGNOSIS: Screening colonoscopy PLANNED PROCEDURE: Operation Date: 03/24/22 08:00 Proposed Procedures p Colonoscopy 21557,Z12.11(Not Applicable) - Jose Rios MD This is a pleasant 61 years old gentleman comes today for screening colonoscopy. ROS All systems have been reviewed negative except as for the above or per problem list. 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 Surgical History (Updated 12/03/21 @ 15:38 by Jose Rios MD) H/O arthroscopic knee surgery H/O eye surgery Left eye - muscle in eye ajusted Family History (Updated 11/14/21 @ 11:39 by Tatiana Wood LPN) Cancer Mother Lymphoma Hypertension Mother Denies family history of Diabetes CAD (coronary artery disease) Clotting disorder Dementia Hyperlipidemia Psychiatric illness Chronic kidney disease (CKD) Suicide Anesthesia complication Bleeding disorder Lung disease Stroke Social History Smoking and tobacco status: never smoked Alcohol intake: current Alcohol intake frequency: holidays/special occasions only Pertinent Exam Findings alert, oriented x 3, regular rate & rhythm and procedure specific exam findings (Abdominal exam nontender nondistended soft) Recommendations Surgery/Procedure today (Colonoscopy with possible biopsy) Coding Level of Care Code Acute [employer] Terrapin for Azeem Dey
[2022-03-24 06:51] VITALS: BP 129/93; PULSE 66; RESP 16; TEMP 36.2; O2SAT 95
[2022-03-24] MEDS: sodium chloride 0.9% 1,000 ML 30 ML IV (07:02)
--- NOTE | 2022-03-24 07:38 | ANES.PREANE2 ---
Pre-Anesthetic Assessment Height/Weight: Height 1.68 m Weight 81.647 kg Temp Pulse Resp BP Pulse Ox O2 Del Method 97.1 F L 66 16 129/93 95 03/24/22 06:51 03/24/22 06:51 03/24/22 06:51 03/24/22 06:51 03/24/22 06:51 03/24/22 06:51 Preop Diagnosis: Screening colonoscopy Operation Date: 03/24/22 08:00 Proposed Procedures p Colonoscopy 84292,Z12.11(Not Applicable) - Jose Rios MD Familial anesthetic complications: none Was Beta [place] taken within 24 hours: N/A Was Clonidine taken within 24 hours: N/A Last intake: Intake Last Liquid Date 03/23/22 Last Liquid Time 21:00 Last Solid Date 03/22/22 Last Solid Time 20:00 Social No alcohol and No tobacco Exam alert, oriented x 3, clear to auscultation bilaterally and regular rate & rhythm Airway Submandibular: within normal limits Cervical ROM: within normal limits Mallampati: Class II Dentition: full CV/HEM Hemachromatosis Anesthetic Plan ASA status: 2 Anesthesia: MAC Medications/Allergies Home Medications Medication Instructions Recorded Confirmed Last Taken Type aspirin 81 mg tablet,delayed 81 mg PO QAM 11/21/21 03/24/22 03/17/22 History release multivitamin 1 tab PO DAILY 11/21/21 03/24/22 03/17/22 History sildenafil 100 mg tablet 25 mg PO DAILY 11/21/21 03/24/22 03/17/22 History Allergies Allergy/AdvReac Type Severity Reaction Status Date / Time No Known Allergies Allergy Verified 03/24/22 06:49 Current Medications Generic Name Dose Route Start Last Admin Trade Name Freq PRN Reason Stop Dose Admin Sodium Chloride 1,000 mls @ 30 mls/hr 03/24/22 06:45 03/24/22 07:02 Sodium Chloride 0.9% IV 03/25/22 06:44 30 mls/hr .Q24H ALMAZ Administration PFSH Anesthesia Medical History 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
[2022-03-24 08:37] VITALS: BP 111/77; PULSE 61; RESP 16; TEMP 36.1; O2SAT 92
--- NOTE | 2022-03-24 08:41 | ANE.PACU2 ---
Inpatient post-anesthesia follow up: Airway intact: Yes Vital signs: Temperature 97.1 F Pulse Rate 66 Respiratory Rate 16 Blood Pressure 129/93 Pulse Oximetry 95 Oxygen Delivery Me thod Room Air Oxygen Flow Rate Fraction of Inspir ed Oxygen Hydration adequate: Yes Nausea and vomiting: No Pain level: 1 Mental status: Baseline
[2022-03-24 08:42] VITALS: BP 106/74; PULSE 67; RESP 16; O2SAT 93
[2022-03-24 08:52] VITALS: BP 112/91; PULSE 52; RESP 18; O2SAT 96
== END 2022-03-24 09:15 | disposition home or self-care (01) ==
PROVIDERS: PCP Family Medicine; Visit Provider Surgery
PROC: 0DJD8ZZ Inspection of Lower Intestinal Tract, Via Natural or Artificial Opening Endoscopic (ICD-10-PCS; CPT 45378; principal; 2022-03-24 08:00)
DX: Z12.11 Encounter for screening for malignant neoplasm of colon (principal); K63.5 Polyp of colon
CPT/HCPCS: 45385; 88305; J2704; J7030

== ENCOUNTER → 2024-05-01 17:53 | Outpatient (BNVA) | payer OTHER, SELFPAY | PROVIDERS: PCP Family Medicine; Visit Provider Nurse Practitioner | DX: R50.9 Fever, unspecified (principal) | CPT/HCPCS: 87400 ==

== ENCOUNTER 2024-05-07 12:25 | Outpatient (CLI) | payer OTHER, SELFPAY ==
--- NOTE | 2024-05-07 12:31 | CTR_ITS ---
PROCEDURE INFORMATION: Exam: CT Abdomen And Pelvis With Contrast Exam date and time: 05/07/2024 2:22 PM Age: 63 years old Clinical indication: Abdominal pain; Localized; Right; Prior surgery; Surgery date: 6+ months; Surgery type: Appy 2 years ago; Patient HX: RT sided abd pain x3 wks wo trauma. PT states he has had relief since physician visit but area is lines tender. Laterally RT side umbilical region TECHNIQUE: Imaging protocol: Computed tomography of the abdomen and pelvis with contrast. Radiation optimization: All CT scans at this facility use at least one of these dose optimization techniques: automated exposure control; mA and/or kV adjustment per patient size (includes targeted exams where dose is matched to clinical indication); or iterative reconstruction. Contrast material: OMMI 350; Contrast volume: 100 ml; Contrast route: INTRAVENOUS (IV); COMPARISON: CT abdomen pelvis wo con [id number] 11/21/2021 1:43 AM RADIATION DOSE METRICS: Total DLP (mGy-cm): 488.46 FINDINGS: Lungs: Lung bases are clear as visualized. Liver: There is diffuse fatty infiltration of the liver. The liver is otherwise normal. Gallbladder and biliary ducts: Normal. No calcified stones. No ductal dilation. Pancreas: Normal. No ductal dilation. Spleen: Normal. No splenomegaly. Adrenal glands: Normal. No mass. Kidneys and ureters: Normal. No hydronephrosis. Stomach and bowel: There is short-segment wall thickening involving the ascending colon/cecum. There is mild adjacent inflammatory fat stranding. Findings are suspicious for tumor. An inflammatory cause is possible. No dilated loops of large or small bowel is otherwise appreciated. Appendix: The appendix is absent. Intraperitoneal space: Unremarkable. No free air. No significant fluid collection. Vasculature: Unremarkable. No abdominal aortic aneurysm. Lymph nodes: There are a few small pericecal lymph nodes. No enlarged nodes are appreciated. Urinary bladder: Unremarkable as visualized. Reproductive: Unremarkable as visualized. Bones/joints: Unremarkable. No acute fracture. Soft tissues: There is a small fat filled inguinal hernia on the left. There is a small fat filled periumbilical hernia. CT/CT abdomen pelvis w con* [id number] IMPRESSION: 1. Short-segment wall thickening involving the ascending colon/cecum. Findings are suspicious for tumor. An inflammatory cause is possible. There are a few small adjacent pericecal lymph nodes as well as mild adjacent fat stranding. 2. Fatty infiltration of the liver. 3. Please see above comments for additional details.
[2024-05-07] MEDS: iohexol 350 mg/mL 500 mL Btl (per mL) PO (13:38)
[2024-05-07 14:17] LABS: Blood Urea Nitrogen 10 mg/dL (8-23); Glomerular Filtration Rate 97.3 mL/min (90-130)
== END 2024-05-07 12:26 | disposition home or self-care (01) ==
LOC: RAD 12:26
PROVIDERS: PCP Family Medicine; Visit Provider Family Medicine
DX: K63.89 Other specified diseases of intestine (principal); K76.0 Fatty (change of) liver, not elsewhere classified
CPT/HCPCS: 74177; 82565; 84520

== ENCOUNTER 2024-06-03 10:12 | Oncology outpatient (recurring) (ONCR) | payer OTHER, SELFPAY ==
[2024-06-03 11:06] LABS: Basophils % 0.4 %; Eosinophils # 0.1 10^3/uL (0.0-0.8); Eosinophils % 1.5 %; Lymphocytes # 1.1 10^3/uL (0.8-4.8); Mean Corpuscular HGB Conc 34.8 g/dL (30-55); Mean Corpuscular Hemoglobin 32.8 pg (27-33); Mean Corpuscular Volume 94.3 fl (82-101); Mean Platelet Volume 9.2 fL (7.4-10.4); Monocytes # 0.4 10^3/uL (0.2-0.9); Monocytes % 7.8 %; Neutrophils # 3.09 10^3/uL (1.8-7.7); Neutrophils % 67.1 %; Nucleated Red Blood Cells % 0 %; Platelet Count 208 10^3/cmm (157-399); Red Blood Count 4.88 10^6/uL (3.85-5.65); Red Cell Distribution Width 11.9 % (12.1-15.1); White Blood Count 4.61 10^3/uL (3.29-11.43)
[2024-06-03 11:34] LABS: Tumor Marker Alpha Fetoprotein 4.4 ng/mL (0-8.3)
[2024-06-03 11:46] LABS: Alanine Aminotransferase 41 U/L (0-41); Albumin Level 4.1 g/dL (3.5-5.2); Alkaline Phosphatase 133 U/L (40-130); Anion Gap 15.5 (5-19); Aspartate Amino Transferase 53 U/L (0-40); Blood Urea Nitrogen 7 mg/dL (8-23); Calcium 8.7 mg/dL (8.5-10.5); Carbon Dioxide 25 mmol/L (22-29); Chloride 100 mmol/L (98-107); Globulin 3.6 g/dL (1.3-4.6); Glomerular Filtration Rate 135.6 mL/min (90-130); Glucose 98 mg/dL (65-115); Lactate Dehydrogenase 312 U/L (135-225); Osmolality Calculated 280 mOsm/kg (285-295); Potassium 4.5 mmol/L (3.5-5.1); Sodium 136 mmol/L (136-145); Total Bilirubin 0.5 mg/dL (0.15-1.2); Total Protein 7.7 g/dL (6.6-8.7)
[2024-06-03 11:48] LABS: Hepatitis A Antibody IgM Non-Reactive (Nonreactive); Hepatitis B Core AB, Total Non-Reactive (Nonreactive); Hepatitis B Surface AB < 3.5 (11.5-1000); Hepatitis B Surface Antigen Non-Reactive (Nonreactive); Hepatitis C Virus Antibody Non-Reactive (Nonreactive)
[2024-06-03 11:50] LABS: Creatinine Clr Calc Pharmacy 125.1185
== END 2024-06-14 23:59 | disposition home or self-care (01) ==
PROVIDERS: PCP Family Medicine; Visit Provider Internal Medicine Medical Oncology
DX: E83.110 Hereditary hemochromatosis (principal); D70.9 Neutropenia, unspecified; K63.5 Polyp of colon; C83.30 Diffuse large B-cell lymphoma, unspecified site
CPT/HCPCS: 36415; 80053; 82105; 83615; 85025; 86705; 86706; 86709; 86803; 87340

== ENCOUNTER 2024-06-11 05:51 | Day surgery (SDC) | payer OTHER, SELFPAY ==
--- OUTSIDE RECORDS SUMMARY | 2024-06-09 11:47 | XMS_ITS ---
Author Name Unknown Organization [facility] Address [address] [place] [address] Care Team Providers Care Cognos Administrator Name Role Phone Roosevelt Victoria Primary Care Provider Allergies No Known Allergies Results Component Value Reference Range Notes Diagnostic Colonoscopy-[id number] Reviewed date:05/26/2024 09:25:15 AM Interpretation: Performing Lab: Notes/Report: REASON FOR VISIT STAT REFERRAL Social History Tobacco Use: Social History Observation Description Date Details (start date - stop date) Never Smoker NA - NA Tobacco Control (Standard) Question Answer Notes Tobacco use: Nonsmoker Problems Problem Type SNOMED Code ICD Code Onset Dates Problem Status W/U Status Risk Notes Problem 94911288 Acute colitis (K52.9) Active confirmed Problem 965339813 Abnormal CT scan, colon (R93.3) Active confirmed Vital Signs Temperature 99 degrees Fahrenheit 05/16/2024 Blood pressure systolic 140 mm Hg 05/16/20 24 Blood pressure diastolic 80 mm Hg 024 Heart Rate 71 /min 05/16/2024 Height 67 in 05/16/2024 Weight 187.4 lbs 05/16/2024 BMI 29.35 kg/m2 05/16/2024 Oximetry 97 % 05/16/2024 Height-cm 170.18 cm 05/16/2024 Weight-kg 85 kg 05/16/2024 Encounters Encounter Location Date Provider Diagnosis [facility] [address] [place] [id number] 05/16/2024 Roosevelt Victoria Acute colitis K52.[address] scan, colon R93.3 Assessments Encounter Date Diagnosis (ICD Code) Assessment Notes Treatment Notes Treatment Clinical Notes 05/16/2024 Acute colitis (ICD-10 - K52.9) -x-- to be completed at [facility] ---to be completed at [facility] ---to be completed at [facility] ---to be completed at [facility] 05/16/[address] scan, colon (ICD-10 - R93.3) -x-- to be completed at [facility] ---to be completed at [facility] ---to be completed at [facility] ---to be completed at [facility] Plan Of Treatment Treatment Notes Assessment Notes Acute colitis -x-- to be completed at [facility] ---to be completed at [facility] ---to be completed at [facility] ---to be completed at [facility] Abnormal CT scan, colon -x-- to be completed at [facility] ---to be completed at [facility] ---to be completed at [facility] ---to be completed at 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 He felt like he had appendicitis. CT scan revealed thickening.? He had a colonoscopy 2? years ago and had a polyp removed in the cecum.? He is having diarrhea.? He has a low grade temp.? He doesn't feel great.? He denies hematochezia.? He is losing some weight.? He has anorexia. * ROS:?General/Constitutional:?Patient denies?fatigue , fever , night sweats.?Hematology:?Patient denies?easy bruising , bleeding problems , recent transfusion.?Respiratory:?Patient denies?cough , shortness of breath , wheezing.?Cardiovascular:?Patient denies?chest pain , irregular heartbeat , swelling in hands/feet.?Gastrointestinal:?Patient denies?bloating , constipation , diarrhea , heartburn , blood in stool , nausea , vomiting.?Genitourinary:?Patient denies?painful urination , blood in the urine , difficulty urinating.?ENT:?Patient denies?ear pain , nosebleed, runny nose,?sore throat.?Musculoskeletal:?Patient denies?arthritis\arthralgia , back pain , joint stiffness , muscle aches.?Skin:?Patient denies?skin lesion(s) , rash , acne.?Neurologic:?Patient denies?dizziness , fainting , headache , memory loss , seizures.?Psychiatric:?Patient denies?anxiety , depressed mood , difficulty sleeping , suicidal thoughts.? * Medical History:? * Surgical History:?appendecto my * Hospitalization/Major Diagno stic Procedure:?No Hospitalization History. * Family History:?Father: dece ased.?Mother: .? * Social History:?Tobacco Use:?Tobacco Control (Standard)?Tobacco use:?Nonsmoker ???Drugs/Alcohol:?Drugs?Have you used drugs other than those for medical reasons in the past 12 months??No * Medications:? * Allergies:?N.K.D.A.no[Allerg ies Verified] Objective: * Vitals:?Ht: 67 in, Wt:187.4l bs, Wt-k kg, BMI:29.35Index, Temp:99F, BP:140/80mm Hg, HR:71/min, Oxygen sat %:97%, O2 Source: RA, Ht-cm: 170.18 cm. * Examination: ???Examination: ?GENERAL APPEARANCE:?Awake/alert. No apparent distress.?HEART:?Regular rate and rhythm without rubs, murmurs, or gallops. PMI nondisplaced.?LUNGS:?Clear to auscultation without rales, rhonchi, wheezing, tachypnea or air hunger.?ABDOMEN:?He still has some tenderness in his RLQ..? Assessment: * Assessment: 1.?Acute colitis - K52.9 (Pr imary)???2.?Abnormal CT scan, colon - R93.3??? Plan: * Treatment: Notes: -x-- to be completed at [facility] ---to be completed at [facility] ---to be completed at [facility] ---to be completed at [facility] ??2.?Abnormal CT scan, colon?Imaging: Diagnostic Colonoscopy-[id number]* This DI was reviewed by Bar Burrows on 05/26/2024 at 09:25 AM PROPERTY AND SUPPLY OFFICER Notes: -x-- to be completed at [facility] ---to be completed at [facility] ---to be completed at [facility] ---to be completed at [facility] ?? * Procedure Codes:?3077F SYST BP = 140 MM HG6 [id number] DIAST BP 80-89 MM [id number] COLORECTAL CA SCREEN DOC [id number] TOBACCO NON-USER Forms: Care Plan: * Problems:? * Billing Information: * Visit Code:? 47154 Office Visit, New Pt., Level 3. * Procedure Codes:? 3077F SYST BP = 140 MM HG6 IT. 3079F DIAST BP 80-89 MM HG. 3017F COLORECTAL CA SCREEN DOC REV. 1036F TOBACCO NON-USER. * ERTY AND SUPPLY OFFICER Sign off status: Completed true * Provider:?Roosevelt Victoria MD Zachary e:?05/16/2024 Generated for Printi ng/Nimisha/eTransmitting on:?06/09/2024 11:47 AM PROPERTY AND SUPPLY OFFICER History and Physical Notes * Examination Category Sub-Category Detail Notes Examination GENERAL APPEARANCE: Awake/alert. No apparent distress HEART: Regular rate and rhy thm without rubs, murmurs, or gallops. PMI nondisplaced ABDOMEN: He still has some te nderness in his RLQ. LUNGS: Clear to auscultatio n without rales, rhonchi, wheezing, tachypnea or air hunger
--- OUTSIDE RECORDS SUMMARY | 2024-06-09 11:47 | XMS_ITS | Patient Health Record ---
Author Name Unknown Organization [facility] Address [address] [place] [address] Care Team Providers Care Heading And Priming Tool Setter Name Role Phone Roosevelt Victoria Primary Care Provider Allergies No Known Allergies Results Component Value Reference Range Notes Diagnostic Colonoscopy-[id number] Reviewed date:05/26/2024 09:25:15 AM Interpretation: Performing Lab: Notes/Report: Colonoscopy w [id number] Reviewed date:05/26/2024 04:32:39 PM Interpretation: Performing Lab: Notes/Report: Reason For Referral Reason STAT CHRONIC DIARRHE A Diagnosis 1 Noninfectious gastro enteritis, unspecified type (K52.9) Referring Provider First Name Landen Referring Provider Last Name Chandu Referring Provider Speciality Family Med icine Referred Organization [facility] Referred Provider Roosevelt Victoria Referred Address [address] [place] [phone], Referral Priority Routine Social History Tobacco Use: Social History Observation Description Date Details (start date - stop date) Never Smoker NA - NA Tobacco Control (Standard) Question Answer Notes Tobacco use: Nonsmoker Problems Problem Type SNOMED Code ICD Code Onset Dates Problem Status W/U Status Risk Notes Problem 63532007 Acute colitis (K52.9) Active confirmed Problem 017076895 Abnormal CT scan, colon (R93.3) Active confirmed Vital Signs Heart Rate 71 /min 05/16/2024 Temperature 99 degrees Fahrenheit 05/16/2024 Blood pressure diastolic 80 mm Hg 05/16/2024 Oximetry 97 % 05/16/2024 Height-cm 170.18 cm 05/16/2024 Weight-kg 85 kg 05/16/2024 Height 67 in 05/16/2024 Blood pressure systolic 140 mm Hg 05/16/2024 Weight 187.4 lbs 05/16/2024 BMI 29.35 kg/m2 05/16/2024 Encounters Encounter Location Date Provider Diagnosis [facility] [address] [phone] 05/16/2024 Roosevelt Victoria Acute colitis K52.[address] scan, colon R93.3 [facility] [address] [place] [address] 05/21/2024 Roosevelt Victoria Edema of colon K63.89 ; Colitis K52.9 and Abnormal computed tomography of cecum and terminal ileum R93.3 Assessments Encounter Date Diagnosis (ICD Code) Assessment Notes Treatment Notes Treatment Clinical Notes 05/16/2024 Acute colitis (ICD-10 - K52.9) -x-- to be completed at [facility] ---to be completed at [facility] ---to be completed at [facility] ---to be completed at [facility] 05/16/[address] scan, colon (ICD-10 - R93.3) -x-- to be completed at [facility] ---to be completed at [facility] ---to be completed at [facility] ---to be completed at [facility] 05/21/2024 Colitis (ICD-10 - K52.9) 05/21/2024 Edema of colon (ICD-10 - K63.89) 05/21/2024 Abnormal computed tomography of cecum and terminal ileum (ICD-10 - R93.3) 05/21/2024 Other see scanned document from [facility] in patients documents. Plan Of Treatment No Information Insurance Providers Payer Name Payer Address Payer Phone Subscriber Number Group Number Insured Name Patient Relationship to Insured Coverage Start Date Coverage End Date Karyna DAVIS [address] [phone] [id number] JAMI ALCANTARA Self - patient is the insured Medical (General) History Surgical History Surgery Date(Month/Year) appendectomy
--- OUTSIDE RECORDS SUMMARY | 2024-06-09 11:47 | XMS_ITS ---
Author Name Unknown Organization [facility] Address [address] [place] [address] Care Team Providers Care Septic Tank Setter Name Role Phone Roosevelt Victoria Primary Care Provider Results Component Value Reference Range Notes Colonoscopy w [id number] Reviewed date:05/26/2024 04:32:39 PM Interpretation: Performing Lab: Notes/Report: REASON FOR VISIT Colonoscopy Encounters Encounter Location Date Provider Diagnosis [address] [address] 05/21/2024 Roosevelt Victoria Edema of colon K63.89 ; Colitis K52.9 and Abnormal computed tomography of cecum and terminal ileum R93.3 Assessments Encounter Date Diagnosis (ICD Code) Assessment Notes Treatment Notes Treatment Clinical Notes 05/21/2024 Edema of colon (ICD-10 - K63.89) 05/21/2024 Colitis (ICD-10 - K52.9) 05/21/2024 Abnormal computed tomography of cecum and terminal ileum (ICD-10 - R93.3) 05/21/2024 Other see scanned document from [facility] in patients documents. Plan Of Treatment Treatment Notes Assessment Notes Other see scanned document from [facility] in patients documents. Progress Notes * JAMI ALCANTARADOB: [birth year] (63 yo M)Acc No.[id number]:05/21/2024 Progress Notes Patient:?JAMI ALCANTARA Provider:?Roosevelt Victoria MD :1960???Age:63 Y???Sex:Male Zachary e:05/21/2024 Address[id number] Subjective: * Chief Complaints: * ???Colonoscopy * HPI: ???::? see scanned document from [facility] in patients documents. * ROS:?see scanned document from [facility] in patients documents. * Medical History:? * Surgical History:? * Hospitalization/Major Diagno stic Procedure:? * Medications:? Objective: * Vitals:? * Examination: ???Examination: ???see scanned document from [facility] in patients documents. ??? Assessment: * Assessment: 1.?Edema of colon - K63.89 ( Primary)???2.?Colitis - K52.9???3.?Abnormal computed tomography of cecum and terminal ileum - R93.3??? Plan: * Treatment: 2.?Others? Notes: see scanned document from [facility] in patients documents.?? * Procedure Codes:?32352 COLON OSCOPY AND BIOPSY Forms: * Billing Information: * Visit Code:? * Procedure Codes:? 70673 COLONOSCOPY AND BIOPSY. Care Plan Details* * TELEMETRY Sign off status: Completed true * Provider:?Roosevelt Victoria MD Zachary e:?05/21/2024 Generated for Kalani barrow/Nimisha/Andrésitting on:?06/09/2024 11:47 AM RN TELEMETRY
[2024-06-11] VITALS (7 sets, daily range): BP systolic 104–160; BP diastolic 63–102; PULSE 68–72; RESP 16–18; TEMP 36.3–36.6; O2SAT 94–97; BMI 29.0
[2024-06-11] MEDS: sodium chloride 0.9% 1,000 ML 30 ML IV (06:17)
--- NOTE | 2024-06-11 06:41 | P.ANESASSM_ITS ---
Pre-Anesthetic Assessment Height/Weight: Height 1.68 m Weight 81.647 kg Temp Pulse Resp BP Pulse Ox O2 Del Method 97.7 F 72 18 160/102 97 Room Air 06/11/24 06:03 06/11/24 06:03 06/11/24 06:03 06/11/24 06:03 06/11/24 06:03 06/11/24 06:03 Operation Date: 06/11/24 07:00 Proposed Procedures p Portacath Placement 47836, C83.30(Not Applicable) - Alexei Mason DO Familial anesthetic complications: None Was Beta Chelsea taken within 24 hours: N/A Was Clonidine taken within 24 hours: N/A Last intake: Intake Last Liquid Date 06/10/24 Last Liquid Time 19:00 Last Solid Date 06/10/24 Last Solid Time 19:00 Social No alcohol and No tobacco Exam alert, oriented x 3, clear to auscultation bilaterally and regular rate & rhythm Airway Mallampati: Class III Dentition: full Comments: Comments: kanchan Mariscal Denies knowledge of hemochromatosis, but admits to iron overload [facility] [place] B cell lymphoma Anesthetic Plan ASA status: 3 Anesthesia: MAC Risk of > 500 ml blood loss (7ml/kg in children): No Medications/Allergies Home Medications Medication Instructions Recorded Confirmed Last Taken Type multivitamin 1 tab PO DAILY 11/21/21 06/10/24 06/10/24 History sildenafil 100 mg tablet 25 mg PO DAILY 11/21/21 06/10/24 03/17/22 History lithium aspartate 5 mg capsule 5 mg PO DAILY 05/01/24 06/10/24 06/10/24 History oxycodone-acetaminophen 10 mg-325 1 tab PO DAILY 1 day #1 tab 06/03/24 06/11/24 Unknown Rx mg tablet (Percocet) Allergies Allergy/AdvReac Type Severity Reaction Status Date / Time No Known Allergies Allergy Verified 06/09/24 08:03 Current Medications Generic Name Dose Route Start Last Admin Trade Name Freq PRN Reason Stop Dose Admin Sodium Chloride 1,000 mls @ 30 mls/hr 06/11/24 06:00 06/11/24 06:17 Sodium Chloride 0.9% IV 06/12/24 05:59 30 mls/hr .Q24H ALMAZ Administration PFSH Anesthesia Medical History 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 Surgical History H/O arthroscopic knee surgery H/O eye surgery Left eye - muscle in eye ajusted Family History Mother Cancer Lymphoma Hypertension Denies family history of Diabetes CAD (coronary artery disease) Clotting disorder Dementia Hyperlipidemia Psychiatric illness Chronic kidney disease (CKD) Suicide Anesthesia complication Bleeding disorder Lung disease Stroke Social History Smoking and tobacco/nicotine status: never used tobacco/nicotine Alcohol intake: current Alcohol intake frequency: holidays/special occasions only Substance/Drug Use: never Data Anesthesia Cardiac Studies: No Data to Display
--- NOTE | 2024-06-11 06:57 | W.PM.OPSUD ---
Surgery/Procedure H&P Update DATE OF PROCEDURE: June 11, 2024 DATE H&P PERFORMED: 06/09/24 H&P UPDATE INFORMATION: I have reviewed H&P completed within last 30 days, I have examined patient prior to procedure and No changes to prior documentation PLANNED PROCEDURE: Operation Date: 06/11/24 07:00 Proposed Procedures p Portacath Placement 41599, C83.30(Not Applicable) - Alexei Mason,
[2024-06-11] MEDS: ceFAZolin 2,000 mg SDV 2000 MG IVP (07:02)
--- NOTE | 2024-06-11 07:03 | SC_ITS ---
WS: [id number] C-ARM RADIOGRAPHS CHEST; 2 IMAGES HISTORY: intraoperative COMPARISON: None available. Intraoperative imaging during Port-A-Cath placement. LEFT subclavian Port-A-Cath appears to be in goo d position. SC/C-arm FL for CVA [id number] IMPRESSION: Intraoperative imaging during Port-A-Cath placement.
[2024-06-11] MEDS: heparin, porcine 1,000 unit/mL INJ 10 mL 10000 UNIT IRRIGATION (07:23)
[2024-06-11] MEDS: lidocaine-epi 2% PF 1:200,000 20 mL SDV 10 ML INJECTION (07:24)
--- NOTE | 2024-06-11 07:29 | XRR_ITS ---
PROCEDURE INFORMATION: Exam: XR Chest Exam date and time: 06/11/2024 7:40 AM Age: 63 years old Clinical indication: Device placement; Other: Postop mediport TECHNIQUE: Imaging protocol: Radiologic exam of the chest. Views: 1 view. COMPARISON: CR XR chest 2V* [id number] 05/15/2024 9:38 AM FINDINGS: Tubes, catheters and devices: Left chest medical port, catheter tip terminating at the cavoatrial junction. Lungs: Hypoventilatory changes of the lung mayorga. No focal consolidation. Pleural spaces: Unremarkable. No pleural effusion. No pneumothorax. Heart/Mediastinum: Unremarkable. No cardiomegaly. Bones/joints: Unremarkable. Other findings: Diffuse predominantly central patchy opacities. XR/XR chest 1V portable [id number] IMPRESSION: 1. Medical devices as above. 2. Hypoinflation changes with diffuse predominantly central patchy opacities without focal consolidation. Clinically rule out infection, volume overload.
--- NOTE | 2024-06-11 07:30 | P.OP_ITS ---
Operative Report Date of procedure: June 11, 2024 Surgeon: Alexei Mason DO Brief History: This is a very pleasant 63-year-old gentleman who presented to my office requesting Mediport placement for chemotherapy access to treat diffuse large B- cell lymphoma. The risks and benefits were explained and documented. Procedure: Pre-op diagnosis: Diffuse large B-cell lymphoma Post-op diagnosis: same Procedure done: Mediport placement Intraoperative interpretation of fluoroscopy Implants: PowerPort Specimens removed/disposition: None Surgeon: Alexei Mason DO Anesthesia: MAC and Local Estimated blood loss (mL): 5 Complications: None apparent Procedure: The patient was taken to the operating room and placed supine on the operating room table. All bony prominences were padded. She was given IV sedation and monitored throughout the case by the anesthesia personnel. SCDs were placed and turned on. The arms were tucked to the side. Patient received Ancef 2 g preo peratively IV. The bilateral chest wall was prepped and draped in usual sterile fashion using chlorhexidine base prep. Sterile drapes were applied. We did procedure pause prior to beginning. An 18 gauge needle was placed in the left subclavian vein. Dark, nonpulsatile blood was aspirated. A guidewire was placed through the needle centrally toward the atrial/vena caval junction. Fluoroscopy visualized good placement. The needle was removed and the guidewire was clipped to the drape with a hemostat. Further local anesthetic was infiltrated in the soft tissues of the left chest wall and a #15 blade was used to make a horizontal skin incision. A subcutaneous Mediport pocket was created using Bovie cautery, dissecting down through the skin and subcutaneous tissues. Meticulous hemostasis was achieved. The Mediport was sutured in position using 3-0 vicryl suture x2 stitches. A #15 blade was used to make a small skin kandis around the guidewire insertion area. The Mediport tubing was tunneled through the subcutaneous tissues up to the needle insertion location. A dilator with a peel-away sheath was placed over the guidewire and placed centrally. After measuring the Mediport tubing was cut to length so that the tip would end at the atrial/vena caval junction. The inner cannula and the guidewire were removed, leaving the dilator sheath in place. The Mediport was flushed. The tip of the catheter was inserted through the peel-away sheath and the peel-away sheath removed in the standard fashion. The Mediport was accessed with a straight Purvis needle and dark, nonpulsatile blood was aspirated and flushed using heparinized saline to hep-lock the Mediport. Final fluoroscopy visualization showed no kink in the catheter and the tip of the Mediport tubing near the atrial/vena caval junction. There is no obvious pneumothorax. Both skin incisions were thoroughly irrigated and suctioned dry. Meticulous hemostasis noted. The dermis was approximated with 3-0 Vicryl in an interrupted fashion. Skin was closed with Dermabond. Patient was awakened from anesthesia and transferred via her cart to the recovery room in stable condition. All needle, sponge, and instrument counts were correct per the operating personnel x2 counts.
--- NOTE | 2024-06-11 08:20 | ANE.PACU2 ---
Inpatient post-anesthesia follow up: Airway intact: Yes Vital signs: Temperature 98 F Pulse Rate 70 Respiratory Rate 18 Blood Pressure 114/80 Pulse Oximetry 95 Oxygen Delivery Me thod Room Air Oxygen Flow Rate Fraction of Inspir ed Oxygen Hydration adequate: Yes Nausea and vomiting: No Pain level: 1 Mental status: Baseline
== END 2024-06-11 08:20 | disposition home or self-care (01) ==
PROVIDERS: PCP Family Medicine; Visit Provider Surgery
PROC: (CPT 36561; principal; 2024-06-11 07:00)
DX: C83.3A Diffuse large B-cell lymphoma, in remission (principal); R03.0 Elevated blood-pressure reading, without diagnosis of hypertension
CPT/HCPCS: 36561; 71045; 76000; 77001; C1788; J0690; J1644; J2250; J3010; J7030

== ENCOUNTER 2024-06-23 09:02 | Outpatient (CLI) | payer OTHER, SELFPAY ==
--- NOTE | 2024-06-23 09:15 | USCV_ITS ---
Roly Cabral Age: 63 Gender: M : 1960 Exam Date: 06/23/2024 09:09 Ordering Phys: Mike Spencer MD Technologist: CT Exam Location: [facility] [place] Indication: CA BP: 180 / 100 HR: 67 Rhythm: Sinus Technical Quality: Adequate MEASUREMENTS (Male / Female) Normal Values 2D ECHO LVOT Diameter 2.1 cm LV Ejection Fraction MOD 4C 71.6 % LV Ejection Fraction MOD 2C 59.0 % LV Ejection Fraction 2C AL 59.1 % LA Diameter 3.8 cm RA Systolic Volume 4C AL 25.1 ml RA Systolic Volume 4C MOD 25.2 ml LA Sys Volume AL 40.1 cm cubed LA Sys Volume Index AL 20.3 cm cubed/m squared Aorta at Sinotubular Diameter 2.1 cm IVC Diameter 2.1 cm M-MODE LA Ao Ratio MM 1.3 AV Cusp Separation MM 1.8 cm DOPPLER AV Peak Velocity 146.0 cm/s LVOT Peak Velocity 88.0 cm/s AV Area Cont Eq vti 2.3 cm squared AV Area Cont Eq pk 2.0 cm squared MV Peak Velocity 88.0 cm/s MV Area PHT 2.6 cm squared Mitral E to A Ratio 1.1 TV Peak Velocity 288.0 cm/s TR Peak Velocity 346.5 cm/s TR Peak Gradient 48.0 mmHg TR Mean Velocity 225.0 cm/s TR Mean Gradient 24.3 mmHg TR Velocity Time Integral 82.5 cm TV Peak E Velocity 98.0 cm/s PV Peak Velocity 149.5 cm/s FINDINGS Left Ventricle Normal left ventricular size and systolic function, EF 59%.. No regional wall motion abnormalities. Right Ventricle The right ventricle is normal in size and function. Right Atrium The right atrium is normal in size. Left Atrium The left atrium is normal in size. Mitral Valve Thickened mitral valve. Aortic Valve Thickened aortic valve. Tricuspid Valve Trace tricuspid valve regurgitation. Estimated pulmonary artery peak systolic pressure 24 mmHg Pulmonic Valve No gross abnormalities noted Pericardium Normal pericardium without effusion. Aorta Normal ascending aorta dimension. IVC The inferior vena cava appears normal. CONCLUSIONS Normal left ventricular size and systolic function, EF 59%.. No regional wall motion abnormalities. Thickened mitral valve. Thickened aortic valve. Trace tricuspid valve regurgitation. Estimated pulmonary artery peak systolic pressure 24 mmHg. There is no pericardial effusion. There are no intracardiac masses. No similar previous studies are available for comparison Dr Richard Gordon MD [facility] (Electronically Signed) Final Date: 27 June 2024 13:05 S
== END 2024-06-23 09:03 | disposition home or self-care (01) ==
PROVIDERS: PCP Family Medicine; Visit Provider Internal Medicine Medical Oncology
DX: I34.81 Nonrheumatic mitral (valve) annulus calcification (principal); I35.8 Other nonrheumatic aortic valve disorders; C18.9 Malignant neoplasm of colon, unspecified
CPT/HCPCS: 93306

== ENCOUNTER 2024-07-01 13:41 | Inpatient (IN) | payer OTHER, SELFPAY ==
[2024-07-01] VITALS (18 sets, daily range): BP systolic 115–157; BP diastolic 76–100; PULSE 67–88; RESP 14–19; TEMP 36.1–37.3; O2SAT 89–99; BMI 29.0; BMI 28.3
--- NOTE | 2024-07-01 08:59 | P.ANESASSM_ITS ---
Pre-Anesthetic Assessment Height/Weight: Height 1.68 m Weight 81.647 kg O2 Del Method Room Air 07/01/24 08:24 Operation Date: 07/01/24 09:35 Proposed Procedures p Laparoscopic Right Hemicolectomy(Right) - Alexei Mason DO Familial anesthetic complications: None Was Beta Chelsea taken within 24 hours: N/A Was Clonidine taken within 24 hours: N/A Last intake: Intake Last Liquid Date 06/30/24 Last Liquid Time 22:00 Last Solid Date 06/29/24 Last Solid Time 20:00 Social No alcohol and No tobacco Exam alert, oriented x 3, clear to auscultation bilaterally and regular rate & rhythm Airway Mallampati: Class II Dentition: full Hepatic iron overload (? hemochromatosis, listed on medical record, but patient was unfamiliar with the condition) Musc/skel B cell lymphoma Anesthetic Plan ASA status: 3 Anesthesia: General Risk of > 500 ml blood loss (7ml/kg in children): No Medications/Allergies Home Medications Medication Instructions Recorded Confirmed Last Taken Type multivitamin 1 tab PO DAILY 11/21/21 07/01/24 06/30/24 History sildenafil 100 mg tablet 25 mg PO DAILY 11/21/21 07/01/24 1 Week Ago History ~06/24/24 lithium aspartate 5 mg capsule 5 mg PO DAILY 05/01/24 07/01/24 06/30/24 History erythromycin 500 mg tablet 500 mg PO TID 1 day #3 tabs 06/30/24 07/01/24 06/30/24 Rx neomycin 500 mg tablet 1 g (2 x 500 mg) PO ONCE #6 tabs 06/30/24 07/01/24 06/30/24 Rx Allergies Allergy/AdvReac Type Severity Reaction Status Date / Time No Known Allergies Allergy Verified 07/01/24 08:33 [facility] Anesthesia Medical History Port-A-Cath in place 06/11/24 Dr Mason 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 Surgical History H/O arthroscopic knee surgery H/O eye surgery Left eye - muscle in eye ajusted Family History Mother Cancer Lymphoma Hypertension Denies family history of Diabetes CAD (coronary artery disease) Clotting disorder Dementia Hyperlipidemia Psychiatric illness Chronic kidney disease (CKD) Suicide Anesthesia complication Bleeding disorder Lung disease Stroke Social History Smoking and tobacco/nicotine status: never used tobacco/nicotine Alcohol intake: current Alcohol intake frequency: holidays/special occasions only Substance/Drug Use: never Data Anesthesia Cardiac Studies: Echocardiogram 06/23/24
[2024-07-01] MEDS: sodium chloride 0.9% 1,000 ML 30 ML IV (09:10)
--- NOTE | 2024-07-01 09:10 | W.PM.OPSUD ---
Surgery/Procedure H&P Update DATE OF PROCEDURE: July 01, 2024 DATE H&P PERFORMED: 06/30/24 H&P UPDATE INFORMATION: I have reviewed H&P completed within last 30 days, I have examined patient prior to procedure and No changes to prior documentation PLANNED PROCEDURE: Operation Date: 07/01/24 09:35 Proposed Procedures p Laparoscopic Right Hemicolectomy(Right) - Alexei Mason DO
[2024-07-01] MEDS: piperacillin-tazobactam 3.375 GM in sodium chloride 0.9% (plus) 50 ML IV ×2 (09:45→18:21)
[2024-07-01] MEDS: lidocaine-epi 2% PF 1:200,000 20 mL SDV XX (10:19)
[2024-07-01 10:51] LABS: Carcinoembryonic Antigen 1.8 ng/mL (0.0-4.7)
[2024-07-01] MEDS: tranexamic acid 1,000 mg/10mL SDV 1000 MG IV ×2 (12:15→13:21)
--- NOTE | 2024-07-01 14:00 | PM.OP ---
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 62-year-old gentleman was diagnosed with diffuse large B-cell lymphoma of the cecum. Workup by oncology, including PET scan, right hemicolectomy was indicated. The risks and benefits were explained and documented. Procedure: Patient was wheeled operative room placed on the OR table in supine position. General endotracheal ovation was achieved by the part of anesthesia. A Simpson catheter was placed. An NG tube was placed and put on low intermittent suction. The abdomen was inspected prepped and draped in usual sterile fashion. A timeout was performed. All present were in agreement. 2% lidocaine with epinephrine was used anesthetize the skin and the left upper quadrant, over An's point. A 15 blade scalpel was used to make a stab incision at this location. A Veress needle was then inserted in the abdomen and intra-abdominal insufflation was brought to 15 mmHg. A 12 mm trocar was placed through the umbilicus. A 5 mm trocar was then placed infraumbilically and a second 5 mm trocar was placed in the left lower quadrant. Omental adhesions to the anterior abdominal wall were taken down with laparoscopic ligature. I then took down the right white line of Toldt both bluntly and with the LigaSure. There were very dense adhesions going posteriorly from the cecum. These were taken down both bluntly and sharply with ligature. Extensive laparoscopic lysis of adhesions was performed greater than 45 minutes. Attachments of the hepatic flexure of the colon to the liver were taken down sharply with the LigaSure. The gastrocolic ligament was transected from mid transverse colon proximally using laparoscopic ligature. There were adhesions from the small bowel to the abdominal wall in the right lower quadrant which were taken down with the laparoscopic ligature. The umbilical incision was then extended superiorly and an Farnaz was placed. The mass was very large and could not be removed through the incision even after extension. I made the decision to convert to an open procedure. The midline incision was extended both cephalad and caudad with a 10 blade scalpel. Bovie cautery was used to dissect down through the subcutaneous tissue and fascia. The cecum and its dense adhesions posteriorly went through the retroperitoneum which had to be opened sharply with laparoscopic ligature. The cecum and its adhesions went into Gerota's fascia of the right kidney. Extreme care was taken to transect these adhesions sharply as well as bluntly without damaging the kidney or its blood supply. The pancreas, aorta and renal artery and vein were all without pathology. I then brought up the proximal transverse colon and right colon and cecum, along with the terminal ileum, through the laparotomy incision. Began transecting the mesentery using the laparoscopic LigaSure. I did this as proximally as possible. During this process I could palpate lymph nodes. I exposed these lymph nodes superficially using Bovie cautery and then excised to those lymph nodes along with the right colic artery and mesentery with the laparoscopic ligature. A [id number], functional end-to-end anastomosis was made at the terminal ileum and mid transverse colon using a MARY 100 mm blue load stapler and a second load after creating small openings in the small bowel and colon with electrocautery. Specimen was passed off. The rest of the abdomen was examined and no pathology was identified. The abdomen was then thoroughly irrigated with warm saline and hemostasis was noted. There was 150 cc of blood loss. The midline abdominal incision was then closed with looped PDS x 2 in a running fashion at the fascia. Skin was closed with mich. Skin was washed and dried. Sterile bandages were applied. Patient tolerated procedure well.
--- NOTE | 2024-07-01 14:05 | ANE.PACU2 ---
Inpatient post-anesthesia follow up: Airway intact: Yes Vital signs: Temperature 98.0 F Pulse Rate 82 Respiratory Rate 16 Blood Pressure 103/67 Pulse Oximetry 93 Oxygen Delivery Me thod Room Air Oxygen Flow Rate 6 Fraction of Inspir ed Oxygen Hydration adequate: Yes Nausea and vomiting: No Pain level: 1 Mental status: Baseline
[2024-07-01 14:53] LABS: Basophils % 0.2 %; Eosinophils % 0.1 %; Hematocrit 40.2 % (37-53); Lymphocytes # 0.7 10^3/uL (0.8-4.8); Lymphocytes % 7.8 %; Mean Corpuscular HGB Conc 32.1 g/dL (30-55); Mean Corpuscular Hemoglobin 32.7 pg (27-33); Mean Platelet Volume 9.2 fL (7.4-10.4); Monocytes # 0.4 10^3/uL (0.2-0.9); Monocytes % 3.8 %; Neutrophils # 7.99 10^3/uL (1.8-7.7); Neutrophils % 87.9 %; Nucleated Red Blood Cells % 0 %; Platelet Count 247 10^3/cmm (157-399); Red Blood Count 3.94 10^6/uL (3.85-5.65); Red Cell Distribution Width 12.4 % (12.1-15.1)
[2024-07-01 15:09] LABS: Anion Gap 15.6 (5-19); Blood Urea Nitrogen 7 mg/dL (8-23); Carbon Dioxide 20 mmol/L (22-29); Chloride 108 mmol/L (98-107); Creatinine Clr Calc Pharmacy 93.5998; Glomerular Filtration Rate 97.3 mL/min (90-130); Glucose 156 mg/dL (65-115); Magnesium 1.8 mg/dL (1.7-2.3); Osmolality Calculated 289 mOsm/kg (285-295); Potassium 4.6 mmol/L (3.5-5.1); Sodium 139 mmol/L (136-145)
[2024-07-01] MEDS: D5-NS 0.45% + KCL 20 mEq 20 MEQ/1,000 ML BAG 75 MEQ IV (16:37)
[2024-07-01] MEDS: pantoprazole 40 mg SDV IVP (16:38)
[2024-07-01] MEDS: heparin 5,000 unit/mL INJ 1 mL 5000 UNIT SUBCUT ×2 (16:38→23:16)
[2024-07-01] MEDS: HYDROmorphone 1 mg/mL INJ 1 mL 0.5 MG IVP (16:43)
[2024-07-02] VITALS (9 sets, daily range): BP systolic 103–152; BP diastolic 67–87; PULSE 78–90; RESP 16–18; TEMP 36.4–37.5; O2SAT 92–94; BMI 28.5
[2024-07-02] MEDS: piperacillin-tazobactam 3.375 GM in sodium chloride 0.9% (plus) 50 ML IV (02:12)
[2024-07-02] MEDS: HYDROmorphone 1 mg/mL INJ 1 mL IVP ×3 (02:24→22:51)
[2024-07-02] MEDS: D5-NS 0.45% + KCL 20 mEq 20 MEQ/1,000 ML BAG 75 MEQ IV ×2 (05:25→18:31)
[2024-07-02] MEDS: heparin 5,000 unit/mL INJ 1 mL 5000 UNIT SUBCUT ×3 (05:25→22:51)
[2024-07-02 06:00] LABS: Basophils % 0.1 %; Hematocrit 37.8 % (37-53); Lymphocytes # 0.6 10^3/uL (0.8-4.8); Lymphocytes % 5.2 %; Mean Corpuscular HGB Conc 32.5 g/dL (30-55); Mean Corpuscular Hemoglobin 32.5 pg (27-33); Mean Platelet Volume 9.1 fL (7.4-10.4); Monocytes # 0.9 10^3/uL (0.2-0.9); Monocytes % 7.1 %; Neutrophils # 10.74 10^3/uL (1.8-7.7); Neutrophils % 87.3 %; Nucleated Red Blood Cells % 0 %; Platelet Count 193 10^3/cmm (157-399); Red Blood Count 3.78 10^6/uL (3.85-5.65); Red Cell Distribution Width 12.5 % (12.1-15.1); White Blood Count 12.31 10^3/uL (3.29-11.43)
[2024-07-02 06:23] LABS: Anion Gap 14.4 (5-19); Blood Urea Nitrogen 11 mg/dL (8-23); Calcium 7.8 mg/dL (8.5-10.5); Carbon Dioxide 21 mmol/L (22-29); Chloride 104 mmol/L (98-107); Creatinine Clr Calc Pharmacy 92.8815; Glomerular Filtration Rate 97.3 mL/min (90-130); Glucose 169 mg/dL (65-115); Osmolality Calculated 283 mOsm/kg (285-295); Potassium 4.4 mmol/L (3.5-5.1); Sodium 135 mmol/L (136-145)
--- NOTE | 2024-07-02 10:47 | PC.CHAP ---
Pastoral Care Encounter/Spiritual Assessment Type of Contact [] Declined associate director visit [] Patient/Family/Request visit [] Outpatient visit [] Follow-up visit [] Physician referral [] Code/Alert [x] Routine visit [] Staff referral [] Actively dying [] Patient sleeping [] Family support [] [] Out of room [] Palliative care [] [] Receiving care in room [] Pre-surgical visit [] Trauma [] Long length of stay [] ICU visit [] Other: Relational/Emotional Strength [x] Patient feels connected with others/family/visitors/staff [] Distress [] Loneliness/isolation [] Abandonment Spirituality of Patient [x] Person of Maddy [] Attends Rastafari of their Maddy [x] Believes in Prayer [] Reads Bible or Pentecostalism materials [] There are Spiritual issues to be addressed Technical Sourcing Recruiter Interventions [x] Prayer [] Active listening [] Non-anxious presence [x] Spiritual/emotional support [] Crisis/trauma care [] Spiritual counseling [] Bereavement support [] Provided bereavement packet [] Provided Bible/devotional materials [] Provided toy/stuffed animal, coloring book to patient or family member [] Provided Communion [] Anointing/[place] [] Salvation [x] Completed spiritual assessment [] Other: Impact on Illness or Injury [] Angry [] Fearful [] Anxious [] Often cries [] Exhaustion [] Unable to work [] Unable to attend zoroastrian [] Unable to walk/stand [] Unable to read [] Unable to drive [] Unable to eat/drink [] Unable to sleep [] Unable to be with family [] Patient intubated [] Other: Summary Time spent with patient 5 min
[2024-07-02] MEDS: phenol oral Spray 177 mL 3 SPRAY MUCOUS MEM (11:09)
--- NOTE | 2024-07-02 11:12 | PC.NURSE ---
encouraged Patient was encourage to walk and use I.S.. Pt refused to walk but did sit on side of bed. Refuses pain med. Encouraged to splint his abd. with pillow. Explained to patient the use of I.S. to prevent pnx.
--- NOTE | 2024-07-02 13:16 | P.PN_ITS ---
Subjective 2 Subjective: Patient seen and examined. Pain controlled. Reports that he is now sleeping well. Only pulling 600 or 700 on incentive spirometer Vitals/I&O/Wt Last Vital Signs Temp 97.8 F 07/03/24 07:56 Pulse 93 07/03/24 07:56 Resp 17 07/03/24 07:56 BP 134/88 07/03/24 07:56 Pulse Ox 94 07/03/24 07:56 O2 Del Method Room Air 07/03/24 07:56 O2 Flow Rate 6 07/01/24 13:43 07/02/24 07/03/24 07/03/24 22:59 06:59 14:59 Intake Total 982.5 / 982.5 1000 / 1000 Output Total 600 / 1350 700 / 2050 Balance 382.5 / -367.5 -700 / -1067.5 1000 / 1000 Weight last 48 hrs Weight 181 lb 8 oz Weight 177 lb Weight 175 lb 6.4 oz Physical Exam 2 Narrative: General: No acute distress, awake alert and oriented x 3 Abdomen: Soft, nondistended, appropriately tender Dressings clean dry and intact Urinary Catheter Management: Simpson: Cath Placed During This Visit: yes Reason for Continuing Indwelling Catheter: Required Immobilization for Trauma or Surgery or Anesthesia Urinary Catheter Date of Insertion: 07/01/24 Urinary Catheter Time of Insertion: 10:00 Data 07/03/24 04:37 07/03/24 04:37 A&P Assessment and plan (1) Diffuse large B-cell lymphoma: (2) Colon cancer: (3) Port-A-Cath in place: Plan Postoperative day #1 status post laparoscopic converted to open right hemicolectomy with extensive lysis of adhesions and exploration of the retroperitoneum Pain control IV fluids Daily labs NGT to LIWS I-S use Ambulate Add Ativan as needed insomnia and anxiety Attestations 2 Medical Necessity Statement*: Patient requires multiple nights in the hospital for recovery and return of bowel function after right hemicolectomy and exploration of the retroperitoneum for diffuse large B-cell lymphoma of the colon Coding Level of Care Code 54557 Diagnoses Diffuse large B-cell lymphoma C83.30 Colon cancer C18.9 Port-A-Cath in place Z95.828
[2024-07-02] MEDS: pantoprazole 40 mg SDV IVP (15:22)
[2024-07-02] MEDS: LORazepam 2 mg/mL INJ 1 mL 0.5 MG IVP (21:22)
[2024-07-03] VITALS (8 sets, daily range): BP systolic 123–146; BP diastolic 77–91; PULSE 7–93; RESP 16–18; TEMP 36.4–37.1; O2SAT 91–97
[2024-07-03 05:26] LABS: Basophils % 0.1 %; Eosinophils % 0.2 %; Hematocrit 34.4 % (37-53); Lymphocytes # 1.2 10^3/uL (0.8-4.8); Lymphocytes % 11.2 %; Mean Corpuscular HGB Conc 32.3 g/dL (30-55); Mean Corpuscular Hemoglobin 32.5 pg (27-33); Mean Corpuscular Volume 100.6 fl (82-101); Mean Platelet Volume 9.6 fL (7.4-10.4); Monocytes # 0.5 10^3/uL (0.2-0.9); Monocytes % 4.7 %; Neutrophils # 8.62 10^3/uL (1.8-7.7); Neutrophils % 83.4 %; Nucleated Red Blood Cells % 0 %; Platelet Count 183 10^3/cmm (157-399); Red Blood Count 3.42 10^6/uL (3.85-5.65); Red Cell Distribution Width 12.6 % (12.1-15.1); White Blood Count 10.34 10^3/uL (3.29-11.43)
[2024-07-03] MEDS: heparin 5,000 unit/mL INJ 1 mL 5000 UNIT SUBCUT ×3 (05:46→19:57)
[2024-07-03 05:51] LABS: Anion Gap 11.1 (5-19); Blood Urea Nitrogen 9 mg/dL (8-23); Calcium 8.3 mg/dL (8.5-10.5); Carbon Dioxide 26 mmol/L (22-29); Chloride 103 mmol/L (98-107); Creatinine Clr Calc Pharmacy 125.2783; Glomerular Filtration Rate 135.6 mL/min (90-130); Glucose 110 mg/dL (65-115); Magnesium 2.2 mg/dL (1.7-2.3); Osmolality Calculated 281 mOsm/kg (285-295); Potassium 4.1 mmol/L (3.5-5.1); Sodium 136 mmol/L (136-145)
[2024-07-03] MEDS: D5-NS 0.45% + KCL 20 mEq 20 MEQ/1,000 ML BAG 75 MEQ IV ×2 (08:20→19:57)
--- NOTE | 2024-07-03 09:19 | P.PN_ITS ---
Subjective 2 Subjective: Patient seen and examined. Pain controlled. Pulling 1000 cc on incentive spirometer today Vitals/I&O/Wt Last Vital Signs Temp 97.8 F 07/03/24 07:56 Pulse 93 07/03/24 07:56 Resp 17 07/03/24 07:56 BP 134/88 07/03/24 07:56 Pulse Ox 94 07/03/24 07:56 O2 Del Method Room Air 07/03/24 07:56 O2 Flow Rate 6 07/01/24 13:43 07/02/24 07/03/24 07/03/24 22:59 06:59 14:59 Intake Total 982.5 / 982.5 1000 / 1000 Output Total 600 / 1350 700 / 2050 Balance 382.5 / -367.5 -700 / -1067.5 1000 / 1000 Weight last 48 hrs Weight 181 lb 8 oz Weight 177 lb Weight 175 lb 6.4 oz Physical Exam 2 Narrative: General: No acute distress, awake alert and oriented x 3 Abdomen: Soft, nondistended, appropriately tender Incisions intact without erythema or exudate Urinary Catheter Management: Simpson: Cath Placed During This Visit: yes Reason for Continuing Indwelling Catheter: Required Immobilization for Trauma or Surgery or Anesthesia Urinary Catheter Date of Insertion: 07/01/24 Urinary Catheter Time of Insertion: 10:00 Data 07/03/24 04:37 07/03/24 04:37 A&P Assessment and plan (1) Diffuse large B-cell lymphoma: (2) Colon cancer: (3) Port-A-Cath in place: Plan Postoperative day #2 status post laparoscopic converted to open right hemicolectomy with extensive lysis of adhesions and exploration of the retroperitoneum Pain control IV fluids Daily labs NGT to LIWS I-S use DC Simpson Ambulate Await return of bowel function Attestations 2 Medical Necessity Statement*: Patient requires multiple nights in the hospital for recovery and return of bowel function after right hemicolectomy and exploration of the retroperitoneum for diffuse large B-cell lymphoma of the colon Coding Level of Care Code 13104 Diagnoses Diffuse large B-cell lymphoma C83.30 Colon cancer C18.9 Port-A-Cath in place Z95.828
[2024-07-03] MEDS: HYDROmorphone 1 mg/mL INJ 1 mL IVP ×2 (13:25→22:58)
[2024-07-03] MEDS: pantoprazole 40 mg SDV IVP (15:43)
[2024-07-03] MEDS: LORazepam 2 mg/mL INJ 1 mL 0.5 MG IVP (22:58)
--- NOTE | 2024-07-03 23:09 | PC.NURSE ---
Patient refused SCDs. Patient educated that they are to help prevent blood clots. Patient states I'm moving my legs all the time.
[2024-07-04] VITALS (9 sets, daily range): BP systolic 121–147; BP diastolic 76–88; PULSE 60–78; RESP 15–18; TEMP 36.6–37; O2SAT 93–97
[2024-07-04 05:13] LABS: Basophils % 0.4 %; Eosinophils # 0.1 10^3/uL (0.0-0.8); Eosinophils % 1.8 %; Hematocrit 32.9 % (37-53); Lymphocytes # 1.2 10^3/uL (0.8-4.8); Lymphocytes % 21.2 %; Mean Corpuscular HGB Conc 33.4 g/dL (30-55); Mean Corpuscular Hemoglobin 32.4 pg (27-33); Mean Corpuscular Volume 97.1 fl (82-101); Mean Platelet Volume 9.1 fL (7.4-10.4); Monocytes # 0.3 10^3/uL (0.2-0.9); Monocytes % 5.9 %; Neutrophils % 70.2 %; Nucleated Red Blood Cells % 0 %; Platelet Count 197 10^3/cmm (157-399); Red Blood Count 3.39 10^6/uL (3.85-5.65); Red Cell Distribution Width 12.3 % (12.1-15.1); White Blood Count 5.56 10^3/uL (3.29-11.43)
[2024-07-04 05:29] LABS: Anion Gap 14.2 (5-19); Blood Urea Nitrogen 8 mg/dL (8-23); Calcium 8.1 mg/dL (8.5-10.5); Carbon Dioxide 23 mmol/L (22-29); Chloride 103 mmol/L (98-107); Creatinine Clr Calc Pharmacy 125.2783; Glomerular Filtration Rate 135.6 mL/min (90-130); Glucose 113 mg/dL (65-115); Osmolality Calculated 281 mOsm/kg (285-295); Potassium 4.2 mmol/L (3.5-5.1); Sodium 136 mmol/L (136-145)
[2024-07-04] MEDS: heparin 5,000 unit/mL INJ 1 mL 5000 UNIT SUBCUT ×3 (05:51→22:54)
--- NOTE | 2024-07-04 08:28 | P.PN_ITS ---
Subjective 2 Subjective: Postoperative day 3 status post laparoscopic converted to open right colectomy for diffuse large B-cell lymphoma. I have been asked to evaluate the patient today as my colleague Dr. Mason is out of town over the weekend. Patient is doing well, at this moment no significant abdominal pain but has not passed any gas yet. Has been ambulating, vital signs have been stable. Vitals/I&O/Wt Last Vital Signs Temp 98.1 F 07/04/24 07:23 Pulse 78 07/04/24 07:23 Resp 17 07/04/24 07:23 BP 121/84 07/04/24 07:23 Pulse Ox 94 07/04/24 07:23 O2 Del Method Room Air 07/04/24 07:23 O2 Flow Rate 6 07/01/24 13:43 07/03/24 07/04/24 07/04/24 22:59 06:59 14:59 Intake Total 870 / 1870 Output Total 575 / 950 600 / 1550 Balance 295 / 920 -600 / 320 Weight last 48 hrs Weight 180 lb Weight 181 lb 8 oz Physical Exam 2 GI: OTHER: Abdominal examination at this time is benign abdomen soft minimal tender to palpation, nondistended. Bowel sounds are Hypoactive Urinary Catheter Management: Simpson: Cath Placed During This Visit: yes, but has since been removed by the nurse Reason for Continuing Indwelling Catheter: Required Immobilization for Trauma or Surgery or Anesthesia Urinary Catheter Date of Insertion: 07/01/24 Urinary Catheter Time of Insertion: 10:00 Date Urinary Catheter Removed: 07/03/24 Time Urinary Catheter Discontinued: 08:50 Data 07/04/24 04:52 07/04/24 04:52 A&P Assessment and plan (1) Colon cancer: Plan Patient showing adequate progression after right colectomy. Has not passed gas yet or had a bowel movement yet the NG output has been about 250 cc overnight out. The fluid appeared to be bilious. I think patient may have a small postoperative ileus as his bowel sounds are hypoactive, I have encouraged him to ambulate if by tomorrow he is able to pass gas we will plan on advance diet otherwise depending on the output we might decide to clamp the tube and give him some fluids to see if he tolerates if he tolerates and has bowel function then we can remove the tube otherwise he will need to continue decompression for another 24 to 48 hours. Attestations 2 Medical Necessity Statement*: Patient will require 24 to 4 hours of hospital stay for continuous management and after right colectomy Coding Level of Care Code Acute Code for Chg Fwd Diagnoses Colon cancer C18.9
[2024-07-04] MEDS: HYDROmorphone 1 mg/mL INJ 1 mL IVP ×2 (08:39→19:29)
[2024-07-04] MEDS: D5-NS 0.45% + KCL 20 mEq 20 MEQ/1,000 ML BAG 75 MEQ IV (12:42)
[2024-07-04] MEDS: pantoprazole 40 mg SDV IVP (16:59)
[2024-07-05] VITALS (8 sets, daily range): BP systolic 118–153; BP diastolic 74–97; PULSE 62–83; RESP 15–18; TEMP 36.6–37.1; O2SAT 95–97
[2024-07-05] MEDS: HYDROmorphone 1 mg/mL INJ 1 mL IVP (00:59)
[2024-07-05] MEDS: heparin 5,000 unit/mL INJ 1 mL 5000 UNIT SUBCUT ×3 (05:56→23:05)
[2024-07-05] MEDS: D5-NS 0.45% + KCL 20 mEq 20 MEQ/1,000 ML BAG 75 MEQ IV (05:56)
--- NOTE | 2024-07-05 08:04 | P.PN_ITS ---
Subjective 2 Subjective: Today is hospital day 4 status post exploratory laparotomy with right hemicolectomy for diffuse large B-cell lymphoma. Over the last 4 hours patient has still not passed any gas but now he feels significant rumbling in the abdomen, he abdomen has remained soft nontender, his vital signs have remained stable no nausea or vomit output from the NG tube has been minimal. Vitals/I&O/Wt Last Vital Signs Temp 97.8 F 07/05/24 07:52 Pulse 81 07/05/24 07:52 Resp 16 07/05/24 07:52 BP 137/88 07/05/24 07:52 Pulse Ox 97 07/05/24 07:52 O2 Del Method Room Air 07/05/24 07:52 O2 Flow Rate 6 07/01/24 13:43 07/04/24 07/05/24 07/05/24 22:59 06:59 14:59 Intake Total 0 / 1022.5 1026.25 / 2048.75 Balance 0 / 1022.5 1026.25 / 2048.75 Weight last 48 hrs Weight 180 lb 9.6 oz Weight 180 lb Physical Exam 2 GI: OTHER: Abdominal examination is benign abdomen is soft and nontender. Surgical incisions are healing well. Urinary Catheter Management: Simpson: Cath Placed During This Visit: yes, but has since been removed by the nurse Reason for Continuing Indwelling Catheter: Required Immobilization for Trauma or Surgery or Anesthesia Urinary Catheter Date of Insertion: 07/01/24 Urinary Catheter Time of Insertion: 10:00 Date Urinary Catheter Removed: 07/03/24 Time Urinary Catheter Discontinued: 08:50 Data 07/04/24 04:52 07/04/24 04:52 A&P Assessment and plan (1) Colon cancer: Plan Patient is showing good progression, probably he had a mild ileus in the postop. And therefore he has taken some time for his bowels function to return. Today he has good bowel sounds in the exam abdominal exam is benign we discussed the possibility of removing the NG tube and allowing him to have clears with a compromise that if he does have vomit the NG tube will be replaced but at this moment patient does not want to remove the NG tube unless he is sure he is not going to vomit, we have decided to clamp the NG tube and allow him to have clears in the event that he has a bowel movement or is passing gas NG tube will be removed otherwise we will check residuals in the afternoon and decide if the NG tube can come out. Plan is to slowly advance diet hopefully we can advance him to full liquid diet by tomorrow and he will be ready for discharge by Sunday. Attestations 2 Medical Necessity Statement*: Patient will require another 24 different hours of hospital stay for operative management after exploratory laparotomy with right hemicolectomy. Coding Level of Care Code Acute Code for Chg Fwd Diagnoses Colon cancer C18.9
[2024-07-05] MEDS: pantoprazole 40 mg SDV IVP (14:23)
--- NOTE | 2024-07-05 15:42 | PM.MISC ---
Miscellaneous Note Purpose of Documentation: Update on patient care Note: Patient has shown good progression, after clear liquids today he had a small bowel movement and passed gas, he will remove NG tube and advance to full liquid diet. If patient is tolerated he will get soft diet in the morning and if tolerating he will be able to discharge tomorrow.
[2024-07-05] MEDS: oxyCODONE 5 mg IR Tab/Cap PO ×2 (16:33→20:32)
[2024-07-06] VITALS: BP 120/71; PULSE 60; RESP 16; TEMP 36.6; O2SAT 97
[2024-07-06 04:00] VITALS: BP 129/78; PULSE 61; RESP 17; TEMP 36.4; O2SAT 95
[2024-07-06] MEDS: heparin 5,000 unit/mL INJ 1 mL 5000 UNIT SUBCUT (06:00)
[2024-07-06 07:51] VITALS: BP 137/82; PULSE 65; RESP 16; TEMP 36.8; O2SAT 95
--- NOTE | 2024-07-06 11:27 | P.DS_ITS ---
Discharge Providers Date of Admission: 07/01/24 13:41 Date of Discharge: July 06, 2024 Attending Provider at Admission: Alexei Mason DO Attending Provider at Discharge: Alexei Mason DO Primary Care Provider: Landen Schofield MD Diagnoses at Discharge Discharge Diagnosis (1) Colon cancer: Status: Acute Hospital Course Hospital Course 63-year-old male who was admitted to hospital for an elective right hemicolectomy for colon cancer. Patient has history of diffuse large B-cell lymphoma and suspected to have lesion in the ascending colon. Procedure was done without complications, patient remained in the hospital for postoperative care, he had a slow return of bowel function, he started to pass gas on postoperative day 3, at that time he was advanced to clear liquid diet, he tolerated well therefore he was advanced to full liquid diet by hospital day 5 he was advanced to GI soft diet with good tolerance, patient was able to have a bowel movement and was passing gas at the time of discharge. No abdominal pain no significant issues and normal vital signs. Physical Exam GI: OTHER: Abdominal examination is benign abdomen is soft appropriately tender nondistended, surgical incision is healing well Urinary Catheter Management: Simpson: Cath Placed During This Visit: yes, but has since been removed by the nurse Reason for Continuing Indwelling Catheter: Required Immobilization for Trauma or Surgery or Anesthesia Urinary Catheter Date of Insertion: 07/01/24 Urinary Catheter Time of Insertion: 10:00 Date Urinary Catheter Removed: 07/03/24 Time Urinary Catheter Discontinued: 08:50 Discharge Data Studies Completed and Pending Pending at discharge Category Date Time Status Pathology: Surgical [PTH] Routine Pth 07/01/24 12:22 Received Laboratory Results WBC 5.56 10^3/uL (3.29-11.43) 07/04/24 04:52 RBC 3.39 10^6/uL (3.85-5.65) L 07/04/24 04:52 Hgb 11.00 g/dL (11.27-16.99) L 07/04/24 04:52 Hct 32.9 % (37-53) L 07/04/24 04:52 MCV 97.1 fl (82-101) 07/04/24 04:52 MCH 32.4 pg (27-33) 07/04/24 04:52 MCHC 33.4 g/dL (30-55) 07/04/24 04:52 RDW 12.3 % (12.1-15.1) 07/04/24 04:52 Plt Count 197 10^3/cmm (157-399) 07/04/24 04:52 MPV 9.1 fL (7.4-10.4) 07/04/24 04:52 Neut % (Auto) 70.2 % 07/04/24 04:52 Lymph % (Auto) 21.2 % 07/04/24 04:52 [place] % (Auto) 5.9 % 07/04/24 04:52 Eos % (Auto) 1.8 % 07/04/24 04:52 Baso % (Auto) 0.4 % 07/04/24 04:52 Neut # (Auto) 3.90 10^3/uL (1.8-7.7) 07/04/24 04:52 Lymph # (Auto) 1.2 10^3/uL (0.8-4.8) 07/04/24 04:52 [place] # (Auto) 0.3 10^3/uL (0.2-0.9) 07/04/24 04:52 Eos # (Auto) 0.1 10^3/uL (0.0-0.8) 07/04/24 04:52 Baso # (Auto) 0.0 10^3/uL (0.0-0.1) 07/04/24 04:52 Nucleated RBC % (auto) 0 % 07/04/24 04:52 Nucleated RBCs # 0.0 /100WBC 07/04/24 04:52 Sodium 136 mmol/L (136-145) 07/04/24 04:52 Potassium 4.2 mmol/L (3.5-5.1) 07/04/24 04:52 Chloride 103 mmol/L (98-107) 07/04/24 04:52 Carbon Dioxide 23 mmol/L (22-29) 07/04/24 04:52 Anion Gap 14.2 (5-19) 07/04/24 04:52 BUN 8 mg/dL (8-23) 07/04/24 04:52 Creatinine 0.6 mg/dL (0.7-1.2) L 07/04/24 04:52 GFR Calculation 135.6 mL/min (90-130) H 07/04/24 04:52 Glucose 113 mg/dL (65-115) 07/04/24 04:52 Calculated Osmolality 281 mOsm/kg (285-295) L 07/04/24 04:52 Calcium 8.1 mg/dL (8.5-10.5) L 07/04/24 04:52 Magnesium 2.0 mg/dL (1.7-2.3) 07/04/24 04:52 Carcinoembryonic Ag 1.8 ng/mL (0.0-4.7) 07/01/24 10:11 Blood Type A Positive 07/01/24 08:59 Rho(D) Type Rh positive 07/01/24 08:59 Antibody Screen Negative 07/01/24 08:59 Vitals Last Vital Signs Temp 98.2 F 07/06/24 07:51 Pulse 65 07/06/24 07:51 Resp 16 07/06/24 07:51 BP 137/82 07/06/24 07:51 Pulse Ox 95 07/06/24 07:51 O2 Del Method Room Air 07/06/24 07:51 O2 Flow Rate 6 07/01/24 13:43 Discharge Plan Discharge Patient Disposition: Home Condition: Stable Prescriptions: New oxycodone 5 mg tablet 5 mg PO Q8H PRN (Reason: pain) 7 Days Qty: 20 0RF polyethylene glycol 3350 [Miralax] 17 gram powder in packet 17 g PO DAILY 7 Days Qty: 7 0RF Continued lithium aspartate 5 mg capsule 5 mg PO DAILY multivitamin Tablet 1 tab PO DAILY sildenafil 100 mg tablet 25 mg PO DAILY Discontinued erythromycin 500 mg tablet 500 mg PO TID 1 Days Qty: 3 0RF Rx Instructions: take 1 tablet at 3 PM, 4PM, and 10PM day before surgery neomycin 500 mg tablet 1 g PO ONCE Qty: 6 0RF Rx Instructions: take 2 tabs at 3 PM, 4 PM, and 10PM day before surgery Discharge Orders: Discharge Order (Routine); Ordered 07/06/24 Ordered By: Sherman Alex Referrals: Alexei Mason DO [Physician] - (1 week) Discharge Diet: GI Soft Discharge Activity: Limit activity as instructed Patient Instructions: Acute Wound Care (DC), Opioid Safety, Post Anesthesia Care, GI (Gastrointestinal) Soft Diet (DC) Activity Restrictions/Additional Instructions: No heavy lifting over the next 6 weeks to prevent hernia. You can shower starting today to let soap and water run over your wounds and then pat dry. No bathing for the next 2 weeks. Please return to the hospital you have fever, chills, severe abdominal pain that is getting worse over time, nausea and vomiting. Discharge Attestations Time Spent in Discharge Care*: less than 30 min Status at Discharge: Cognitive status at discharge: cognitively intact , Behavioral status at discharge: cooperative , Quality Metrics Clinical Quality Measures [ No reported AMI, CVA or VTE this stay] Coding Level of Care Code Acute Code for Chg Fwd Diagnoses Colon cancer C18.9
[2024-07-06 12:02] VITALS: BP 127/82; PULSE 77; RESP 17; TEMP 36.5; O2SAT 94
[2024-07-06 13:11] VITALS: BP 127/82; PULSE 77; O2SAT 94
--- NOTE | 2024-07-06 13:14 | PC.NURSE ---
Discharge paperwork discussed with patient and spouse. All questions were answered. IV was removed. Patient exited facility with spouse, escorted by this nurse.
[2024-07-08 12:55] LABS: Lymphoma Profile (BBPL) See Report
== END 2024-07-06 13:00 | disposition home or self-care (01) | DRG 822 ==
LOC: MEDSURG 13:45
PROVIDERS: Admitting Provider Surgery; PCP Family Medicine; Visit Provider Surgery
PROC: 0DTF4ZZ Resection of Right Large Intestine, Percutaneous Endoscopic Approach (ICD-10-PCS; CPT 44205; principal; 2024-07-01 09:25)
PROC: 0DTF0ZZ Resection of Right Large Intestine, Open Approach (ICD-10-PCS; 2024-07-01 09:25)
DX: C83.33 Diffuse large B-cell lymphoma, intra-abdominal lymph nodes (principal); E83.110 Hereditary hemochromatosis; Z80.7 Family history of other malignant neoplasms of lymphoid, hematopoietic and related tissues; Z82.49 Family history of ischemic heart disease and other diseases of the circulatory system; Z95.828 Presence of other vascular implants and grafts; K66.0 Peritoneal adhesions (postprocedural) (postinfection)
CPT/HCPCS: 36415; 51702; 80048; 82378; 83735; 85025; 86850; 86900; 88184; 88185; 88309; 96372; J1100; J1171; J1644; J2060; J2405; J2470; J2543; J2704; J2795; J3010; J3490; J7030

== ENCOUNTER 2024-07-11 15:00 | Oncology outpatient (recurring) (ONCR) | payer OTHER, SELFPAY ==
--- NOTE | 2024-06-20 13:00 | PETR_ITS ---
PROCEDURE INFORMATION: Exam: PET/CT Skull Base to Mid-thigh Exam date and time: 06/20/2024 1:51 PM Age: 63 years old Clinical indication: Condition or disease; Primary cancer: Colon cancer; Initial oncological staging assessment; Prior surgery; Surgery date: 6+ months; Surgery type: Appy x2 yrs ago. Additional history indicates bone biopsy performed this morning. LABS AND CLINICAL REPORTS: Glucose: 76 mg/dl Treatment strategy for malignancy (PET staging): Initial Staging (PI) TECHNIQUE: Imaging protocol: Following at least four-hour fasting and following the injection of radiopharmaceutical, low dose CT images were obtained. Then, PET images were obtained. Attenuation corrected images were constructed using the CT scan. Fused images of PET and CT were reviewed. The standardized uptake values (SUV) reported below are maximum values within a region of interest, expressed in gm/ml. Exam includes orbital meatal line to mid-thigh. SUV normalization method: BodyWeight Radiopharmaceutical: 11.34 mCi F-18 FDG (Fluorodeoxyglucose), IV. Time of imaging post radiopharmaceutical administration: 45 minutes Injection site: left ac COMPARISON: 1. CT abdomen pelvis w con* [id number] 05/07/2024 2:[address] abdomen pelvis wo con [id number] 11/21/2021 1:43 AM 3. CR XR chest 1V portable [id number] 06/11/2024 7:40 AM FINDINGS: Tubes, catheters and devices: Left chest port terminates at the SVC. Brain: Visualized brain has normal physiologic uptake. Pharynx: No abnormal uptake. Larynx: No abnormal uptake. Lungs, pleura and trachea: No abnormal uptake. Mild dependent atelectasis. No consolidation, mass, or pleural effusion. Heart: Normal physiologic uptake. Coronary arteries: Mild coronary artery calcification. Mediastinal space: No abnormal uptake. Liver: No abnormal uptake. Gallbladder and biliary ducts: No abnormal uptake. Pancreas: Focal FDG uptake at the body without discretely visualized underlying mass shows SUV max 8.7 on axial image 358. Spleen: No abnormal uptake. Adrenal glands: Mild xfwp-[id number]-mqmp-right FDG uptake without underlying mass is likely physiologic or possibly hyperplasia. Kidneys and ureters: Normal physiologic uptake. Stomach and bowel: Highly FDG avid masslike thickening at the cecum/ascending colon shows SUV max 36.6. Less pronounced thickening and FDG uptake along the underdistended rectosigmoid colon may be physiologic or inflammatory. Vasculature: No abnormal uptake. Mild systemic atherosclerotic calcification without aortic aneurysm. Lymph nodes: Moderate FDG uptake at mediastinal lymph nodes with index subcarinal node measuring 1.6 cm in the short axis with SUV max 4.9. Lower level right hilar uptake with SUV max 3.2 on axial image 437 without discretely measurable underlying lymph node. Left hilar uptake shows SUV max 3.4 on axial image 456 also without discretely measurable underlying lymph node. Skeleton: Focal FDG uptake at the posterior right ilium shows SUV max 3.6 on axial image 226. Mild degenerative changes along the axial skeletal system and acromioclavicular joints. Soft tissues: No abnormal uptake in the visualized head, neck, chest, abdomen, pelvis, and extremities. Small fat containing left inguinal hernia. METRICS: Mediastinal blood pool: SUV mean 2.0 Liver uptake: SUV mean 2.6 PET/PET skull to thigh INIT [id number] IMPRESSION: 1. Highly FDG avid masslike thickening at the cecum/ascending colon compatible with malignancy. 2. Less pronounced relative thickening and FDG uptake along the underdistended rectosigmoid colon, favor physiologic or inflammatory. 3. Focal FDG uptake at the pancreatic body suspicious for neoplasm. Recommend pancreatic MRI or CT without and with contrast. 4. Papf-sc-sxxnlcyt mediastinal greater than bilateral hilar FDG uptake is favored to be benign granulomatous or reactive, neoplastic process thought unlikely. 5. Focal FDG uptake in the posterior right ilium. Correlate with reported bone biopsy. 6. Additional chronic and incidental findings as above
[2024-07-11] MEDS: iohexol 350 mg/mL 500 mL Btl (per mL) PO (14:47)
--- NOTE | 2024-07-11 15:00 | CTR_ITS ---
PROCEDURE INFORMATION: Exam: CT Abdomen And Pelvis Without And With Contrast Exam date and time: 07/11/2024 3:12 PM Age: 63 years old Clinical indication: Abdominal pain; Generalized; Prior surgery; Surgery date: <1 month; Surgery type: Colon; Additional info: Colon cancer, pancreatic protocol TECHNIQUE: Imaging protocol: Computed tomography of the abdomen and pelvis without and with contrast. Radiation optimization: All CT scans at this facility use at least one of these dose optimization techniques: automated exposure control; mA and/or kV adjustment per patient size (includes targeted exams where dose is matched to clinical indication); or iterative reconstruction. Contrast material: OMNIPAQUE 350; Contrast volume: 100 ml; Contrast route: INTRAVENOUS (IV); COMPARISON: PT PET skull to thigh INIT [id number] 06/20/2024 1:51 PM RADIATION DOSE METRICS: Total DLP (mGy-cm): 841.42 FINDINGS: Liver: Normal. No mass. Gallbladder and biliary ducts: Normal. No calcified stones. No ductal dilation. Pancreas: Normal. No ductal dilation. Spleen: Normal. No splenomegaly. Adrenal glands: Normal. No mass. Kidneys and ureters: Normal. No hydronephrosis. Stomach and bowel: Unremarkable. No obstruction. No mucosal thickening. Appendix: No evidence of appendicitis. Intraperitoneal space: Unremarkable. No free air. No significant fluid collection. Vasculature: Unremarkable. No abdominal aortic aneurysm. Lymph nodes: Unremarkable. No enlarged lymph nodes. Bones/joints: Unremarkable. No acute fracture. Soft tissues: Unremarkable. CT/CT abdomen wo/w con [id number] IMPRESSION: No acute findings.
[2024-07-11] MEDS: iohexol 350 mg/mL 500 mL Btl (per mL) IV (15:14)
== END 2024-07-15 23:59 | disposition home or self-care (01) ==
LOC: RAD 07-12 → ONCMED 07-14 09:17
PROVIDERS: PCP Family Medicine; Visit Provider Surgery
DX: C18.9 Malignant neoplasm of colon, unspecified (principal)
CPT/HCPCS: 74170; 78815; A9552

== ENCOUNTER 2024-07-22 09:33 | Oncology outpatient (recurring) (ONCR) | payer OTHER, SELFPAY ==
[2024-07-22 09:49] LABS: Basophils % 0.5 %; Eosinophils # 0.2 10^3/uL (0.0-0.8); Hematocrit 40.6 % (37-53); Lymphocytes # 0.9 10^3/uL (0.8-4.8); Mean Corpuscular Volume 96.9 fl (82-101); Mean Platelet Volume 8.9 fL (7.4-10.4); Monocytes # 0.3 10^3/uL (0.2-0.9); Monocytes % 9.1 %; Neutrophils # 2.15 10^3/uL (1.8-7.7); Neutrophils % 59.1 %; Nucleated Red Blood Cells % 0 %; Platelet Count 222 10^3/cmm (157-399); Red Blood Count 4.19 10^6/uL (3.85-5.65); White Blood Count 3.64 10^3/uL (3.29-11.43)
[2024-07-22 10:14] LABS: Alanine Aminotransferase 49 U/L (0-41); Alkaline Phosphatase 185 U/L (40-130); Anion Gap 16.4 (5-19); Aspartate Amino Transferase 62 U/L (0-40); Blood Urea Nitrogen 6 mg/dL (8-23); Calcium 9.1 mg/dL (8.5-10.5); Carbon Dioxide 25 mmol/L (22-29); Chloride 100 mmol/L (98-107); Globulin 3.4 g/dL (1.3-4.6); Glomerular Filtration Rate 113.5 mL/min (90-130); Glucose 118 mg/dL (65-115); Osmolality Calculated 283 mOsm/kg (285-295); Potassium 4.4 mmol/L (3.5-5.1); Sodium 137 mmol/L (136-145); Total Bilirubin 0.4 mg/dL (0.15-1.2); Total Protein 7.4 g/dL (6.6-8.7)
== END 2024-08-15 23:59 | disposition home or self-care (01) ==
PROVIDERS: Internal Medicine Medical Oncology; PCP Family Medicine; Visit Provider Surgery
DX: Z53.9 Procedure and treatment not carried out, unspecified reason; K63.5 Polyp of colon; D70.9 Neutropenia, unspecified; E83.110 Hereditary hemochromatosis; C18.9 Malignant neoplasm of colon, unspecified; K86.9 Disease of pancreas, unspecified
CPT/HCPCS: 36415; 80053; 85025

== ENCOUNTER 2024-09-08 07:37 | Oncology outpatient (recurring) (ONCR) | payer OTHER, SELFPAY ==
[2024-09-08] VITALS (8 sets, daily range): BP systolic 124–160; BP diastolic 74–96; PULSE 73–82; RESP 16–17; TEMP 36.3–37.4; O2SAT 90–96
[2024-09-08 08:05] LABS: Basophils % 0.6 %; Eosinophils # 0.1 10^3/uL (0.0-0.8); Eosinophils % 2.6 %; Hematocrit 43.1 % (37-53); Lymphocytes # 0.9 10^3/uL (0.8-4.8); Lymphocytes % 16.2 %; Mean Corpuscular HGB Conc 32.3 g/dL (30-55); Mean Corpuscular Hemoglobin 30.5 pg (27-33); Mean Corpuscular Volume 94.7 fl (82-101); Mean Platelet Volume 9.4 fL (7.4-10.4); Monocytes # 0.6 10^3/uL (0.2-0.9); Monocytes % 11.6 %; Neutrophils # 3.69 10^3/uL (1.8-7.7); Neutrophils % 68.8 %; Nucleated Red Blood Cells % 0 %; Platelet Count 247 10^3/cmm (157-399); Red Blood Count 4.55 10^6/uL (3.85-5.65); Red Cell Distribution Width 14.7 % (12.1-15.1); White Blood Count 5.36 10^3/uL (3.29-11.43)
[2024-09-08 08:25] LABS: Albumin Level 3.6 g/dL (3.5-5.2); Alkaline Phosphatase 286 U/L (40-130); Anion Gap 13.1 (5-19); Blood Urea Nitrogen 10 mg/dL (8-23); Calcium 9.1 mg/dL (8.5-10.5); Carbon Dioxide 26 mmol/L (22-29); Chloride 100 mmol/L (98-107); Creatinine Clr Calc Pharmacy 105.3294; Globulin 4.3 g/dL (1.3-4.6); Glomerular Filtration Rate 113.5 mL/min (90-130); Glucose 155 mg/dL (65-115); Osmolality Calculated 282 mOsm/kg (285-295); Potassium 4.1 mmol/L (3.5-5.1); Sodium 135 mmol/L (136-145); Total Bilirubin 0.9 mg/dL (0.15-1.2); Total Protein 7.9 g/dL (6.6-8.7)
[2024-09-08 08:35] LABS: Alanine Aminotransferase 61 U/L (0-41); Aspartate Amino Transferase 81 U/L (0-40); Lactate Dehydrogenase 252 U/L (135-225)
[2024-09-08] MEDS: fosaprepitant 150 MG in sodium chloride 0.9% 150 ML 300 MG IV (10:55)
[2024-09-08] MEDS: sodium chloride 0.9% 500 ML 75 ML IV (10:59)
[2024-09-08] MEDS: diphenhydrAMINE 50 mg/mL SDV 1mL 25 MG IVP ×2 (11:00→14:25)
[2024-09-08] MEDS: famotidine 20 mg/2 mL INJ IVP (11:03)
[2024-09-08] MEDS: dexamethasone 4 mg/mL INJ 12 MG IVP (11:05)
[2024-09-08] MEDS: OLANZapine 5 mg TABLET PO (11:07)
[2024-09-08] MEDS: palonosetron 0.25 mg/5 mL SDV IVP (11:10)
[2024-09-08] MEDS: methylPREDNISolone sod succ 125 mg/2 mL INJ 40 MG IVP (14:51)
[2024-09-08] MEDS: DOXOrubicin 2 mg/ml MDV 94 MG IVP (16:50)
[2024-09-08] MEDS: CYCLOPHOSPHAMIDE IV (17:11)
[2024-09-08] MEDS: SODIUM CHLORIDE 0.9% IV (17:11)
[2024-09-08] MEDS: pegfilgrastim 6 mg/0.6 mL Kit (onpro) SUBCUT (18:21)
== END 2024-09-08 23:59 | disposition home or self-care (01) ==
PROVIDERS: Nurse Practitioner Family; PCP Family Medicine; Visit Provider Internal Medicine Medical Oncology
DX: Z51.12 Encounter for antineoplastic immunotherapy (principal); Z51.11 Encounter for antineoplastic chemotherapy; C83.30 Diffuse large B-cell lymphoma, unspecified site; Z79.899 Other long term (current) drug therapy
CPT/HCPCS: 80053; 83615; 85025; 96367; 96372; 96375; 96376; 96377; 96411; 96413; 96415; 96417; J1100; J1200; J1453; J2469; J2506; J2919; J3490; J7040; J9000; J9075; J9370; Q5115

== ENCOUNTER 2024-09-29 07:34 | Oncology outpatient (recurring) (ONCR) | payer OTHER, SELFPAY ==
[2024-09-15 11:50] LABS: Basophils % 1.8 %; Eosinophils # 0.1 10^3/uL (0.0-0.8); Eosinophils % 10.9 %; Hematocrit 40.4 % (37-53); Lymphocytes # 0.3 10^3/uL (0.8-4.8); Lymphocytes % 50.9 %; Mean Corpuscular HGB Conc 32.9 g/dL (30-55); Mean Corpuscular Hemoglobin 30.9 pg (27-33); Mean Corpuscular Volume 93.7 fl (82-101); Mean Platelet Volume 10.2 fL (7.4-10.4); Monocytes # 0.1 10^3/uL (0.2-0.9); Neutrophils % 16.4 %; Nucleated Red Blood Cells % 0 %; Platelet Count 138 10^3/cmm (157-399); Red Blood Count 4.31 10^6/uL (3.85-5.65); Red Cell Distribution Width 14.5 % (12.1-15.1)
[2024-09-15 12:02] LABS: Alanine Aminotransferase 85 U/L (0-41); Albumin Level 3.5 g/dL (3.5-5.2); Alkaline Phosphatase 266 U/L (40-130); Anion Gap 12.2 (5-19); Aspartate Amino Transferase 103 U/L (0-40); Blood Urea Nitrogen 9 mg/dL (8-23); Calcium 9.1 mg/dL (8.5-10.5); Carbon Dioxide 26 mmol/L (22-29); Chloride 97 mmol/L (98-107); Globulin 3.9 g/dL (1.3-4.6); Glomerular Filtration Rate 167.4 mL/min (90-130); Glucose 107 mg/dL (65-115); Lactate Dehydrogenase 194 U/L (135-225); Osmolality Calculated 271 mOsm/kg (285-295); Potassium 4.2 mmol/L (3.5-5.1); Sodium 131 mmol/L (136-145); Total Bilirubin 1.4 mg/dL (0.15-1.2); Total Protein 7.4 g/dL (6.6-8.7)
[2024-09-15 12:06] LABS: Neutrophils # 0.09 10^3/uL (1.8-7.7); White Blood Count 0.55 10^3/uL (3.29-11.43)
[2024-09-15 12:07] LABS: Slide Review Slide Review Perform
--- NOTE | 2024-09-15 13:48 | XR_ITS ---
WS: [id number] XR chest 2V* [id number] REASON FOR EXAM: cough FINDINGS: Chemotherapy infusion port over the left chest with a trans left subclavian vein infusion catheter with the tip in the mid to distal SVC. Mild tortuosity and ectasia of the thoracic aorta. Normal heart size. Calcified granulomatous disease bilaterally. There are small groups of mildly dilated bronchi with slightly thickened tabares centrally in the right lung. These have been present and are unchanged from 2022 2020 to the present. This may represent foci of chronic airway disease. No acute pulmonary parenchymal or pleural abnormality. The bony thorax is intact with no focal abnormality. XR/XR chest 2V* [id number] IMPRESSION: No acute chest abnormality. Possible chronic airway disease as above.
[2024-09-22 14:25] LABS: Basophils % 0.6 %; Eosinophils % 0.3 %; Hematocrit 39.4 % (37-53); Lymphocytes # 0.7 10^3/uL (0.8-4.8); Lymphocytes % 10.3 %; Mean Corpuscular HGB Conc 32.7 g/dL (30-55); Mean Corpuscular Hemoglobin 30.4 pg (27-33); Mean Corpuscular Volume 92.9 fl (82-101); Mean Platelet Volume 9.7 fL (7.4-10.4); Monocytes # 0.8 10^3/uL (0.2-0.9); Monocytes % 12.7 %; Neutrophils # 4.79 10^3/uL (1.8-7.7); Neutrophils % 75.2 %; Nucleated Red Blood Cells % 0 %; Platelet Count 230 10^3/cmm (157-399); Red Blood Count 4.24 10^6/uL (3.85-5.65); Red Cell Distribution Width 14.3 % (12.1-15.1); White Blood Count 6.38 10^3/uL (3.29-11.43)
[2024-09-22 14:45] LABS: Alanine Aminotransferase 52 U/L (0-41); Albumin Level 3.5 g/dL (3.5-5.2); Alkaline Phosphatase 297 U/L (40-130); Anion Gap 12.7 (5-19); Aspartate Amino Transferase 62 U/L (0-40); Blood Urea Nitrogen 6 mg/dL (8-23); Calcium 9.2 mg/dL (8.5-10.5); Carbon Dioxide 28 mmol/L (22-29); Chloride 101 mmol/L (98-107); Globulin 3.5 g/dL (1.3-4.6); Glomerular Filtration Rate 113.5 mL/min (90-130); Glucose 117 mg/dL (65-115); Lactate Dehydrogenase 171 U/L (135-225); Osmolality Calculated 285 mOsm/kg (285-295); Potassium 3.7 mmol/L (3.5-5.1); Sodium 138 mmol/L (136-145); Total Bilirubin 0.6 mg/dL (0.15-1.2)
[2024-09-29 07:57] LABS: Basophils # 0.1 10^3/uL (0.0-0.1); Eosinophils % 0.3 %; Hematocrit 40.2 % (37-53); Lymphocytes # 0.6 10^3/uL (0.8-4.8); Lymphocytes % 18.3 %; Mean Corpuscular HGB Conc 32.8 g/dL (30-55); Mean Corpuscular Hemoglobin 30.4 pg (27-33); Mean Corpuscular Volume 92.6 fl (82-101); Mean Platelet Volume 9.3 fL (7.4-10.4); Monocytes # 1.1 10^3/uL (0.2-0.9); Monocytes % 31.5 %; Neutrophils # 1.66 10^3/uL (1.8-7.7); Neutrophils % 47.6 %; Nucleated Red Blood Cells % 0 %; Platelet Count 278 10^3/cmm (157-399); Red Blood Count 4.34 10^6/uL (3.85-5.65); Red Cell Distribution Width 14.8 % (12.1-15.1); White Blood Count 3.49 10^3/uL (3.29-11.43)
[2024-09-29 08:14] LABS: Alanine Aminotransferase 70 U/L (0-41); Albumin Level 3.5 g/dL (3.5-5.2); Alkaline Phosphatase 240 U/L (40-130); Anion Gap 11.5 (5-19); Aspartate Amino Transferase 90 U/L (0-40); Blood Urea Nitrogen 7 mg/dL (8-23); Calcium 9.1 mg/dL (8.5-10.5); Carbon Dioxide 26 mmol/L (22-29); Chloride 104 mmol/L (98-107); Globulin 3.7 g/dL (1.3-4.6); Glomerular Filtration Rate 135.6 mL/min (90-130); Glucose 93 mg/dL (65-115); Lactate Dehydrogenase 174 U/L (135-225); Osmolality Calculated 282 mOsm/kg (285-295); Potassium 4.5 mmol/L (3.5-5.1); Sodium 137 mmol/L (136-145); Total Bilirubin 0.5 mg/dL (0.15-1.2); Total Protein 7.2 g/dL (6.6-8.7)
[2024-09-29] MEDS: sodium chloride 0.9% 500 ML 75 ML IV (09:12)
[2024-09-29] MEDS: palonosetron 0.25 mg/5 mL SDV IVP (09:13)
[2024-09-29] MEDS: diphenhydrAMINE 50 mg/mL SDV 1mL 25 MG IVP (09:13)
[2024-09-29] MEDS: OLANZapine 5 mg TABLET PO (09:13)
[2024-09-29] MEDS: famotidine 20 mg/2 mL INJ IVP (09:17)
[2024-09-29] MEDS: dexamethasone 4 mg/mL INJ 12 MG IVP (09:20)
[2024-09-29] MEDS: fosaprepitant 150 MG in sodium chloride 0.9% 150 ML 300 MG IV (09:26)
[2024-09-29 10:10] VITALS: BP 129/83; PULSE 61; RESP 18; TEMP 35.6; O2SAT 97
[2024-09-29 10:18] LABS: Ferritin 436 ng/mL (30-400)
[2024-09-29 10:45] VITALS: BP 136/91; PULSE 67; RESP 18; TEMP 35.6; O2SAT 97
[2024-09-29 11:49] VITALS: BP 146/88; PULSE 68; RESP 17; TEMP 35.6; O2SAT 96
[2024-09-29] MEDS: DOXOrubicin 2 mg/ml MDV 94 MG IVP (13:06)
[2024-09-29] MEDS: CYCLOPHOSPHAMIDE IV (13:25)
[2024-09-29] MEDS: SODIUM CHLORIDE 0.9% IV (13:25)
[2024-09-29] MEDS: pegfilgrastim 6 mg/0.6 mL Kit (onpro) SUBCUT (14:53)
[2024-09-29 14:56] VITALS: BP 147/84; PULSE 69; RESP 16; TEMP 35.5; O2SAT 95
== END 2024-09-29 23:59 | disposition home or self-care (01) ==
PROVIDERS: Nurse Practitioner; Nurse Practitioner Family; PCP Family Medicine; Visit Provider Internal Medicine Medical Oncology
DX: Z53.9 Procedure and treatment not carried out, unspecified reason; Z51.12 Encounter for antineoplastic immunotherapy; C83.89 Other non-follicular lymphoma, extranodal and solid organ sites; Z79.52 Long term (current) use of systemic steroids; E83.110 Hereditary hemochromatosis
CPT/HCPCS: 36591; 71046; 80053; 82728; 83615; 85025; 96367; 96372; 96375; 96377; 96411; 96413; 96415; 96417; J1100; J1200; J1453; J2469; J2506; J3490; J7040; J9000; J9075; J9370; J9999; Q5115

== ENCOUNTER 2024-10-13 14:45 | Oncology outpatient (recurring) (ONCR) | payer OTHER, SELFPAY ==
[2024-10-06 15:16] LABS: Basophils % 3.3 %; Eosinophils % 2.4 %; Hematocrit 36.4 % (37-53); Lymphocytes # 0.3 10^3/uL (0.8-4.8); Lymphocytes % 23.6 %; Mean Corpuscular HGB Conc 33.8 g/dL (30-55); Mean Corpuscular Hemoglobin 31.3 pg (27-33); Mean Corpuscular Volume 92.6 fl (82-101); Mean Platelet Volume 11.1 fL (7.4-10.4); Monocytes # 0.2 10^3/uL (0.2-0.9); Monocytes % 15.4 %; Neutrophils % 49.6 %; Nucleated Red Blood Cells % 0 %; Platelet Count 98 10^3/cmm (157-399); Red Blood Count 3.93 10^6/uL (3.85-5.65); Red Cell Distribution Width 15.3 % (12.1-15.1); White Blood Count 1.23 10^3/uL (3.29-11.43)
[2024-10-06 15:23] LABS: Neutrophils # 0.61 10^3/uL (1.8-7.7)
[2024-10-06 15:31] LABS: Slide Review Slide Review Perform
[2024-10-06 15:36] LABS: Alanine Aminotransferase 46 U/L (0-41); Albumin Level 3.5 g/dL (3.5-5.2); Alkaline Phosphatase 206 U/L (40-130); Anion Gap 13.1 (5-19); Aspartate Amino Transferase 60 U/L (0-40); Blood Urea Nitrogen 10 mg/dL (8-23); Calcium 9.2 mg/dL (8.5-10.5); Carbon Dioxide 27 mmol/L (22-29); Chloride 100 mmol/L (98-107); Globulin 3.4 g/dL (1.3-4.6); Glomerular Filtration Rate 113.5 mL/min (90-130); Glucose 110 mg/dL (65-115); Lactate Dehydrogenase 249 U/L (135-225); Osmolality Calculated 282 mOsm/kg (285-295); Potassium 4.1 mmol/L (3.5-5.1); Sodium 136 mmol/L (136-145); Total Protein 6.9 g/dL (6.6-8.7)
[2024-10-13 15:27] LABS: Basophils % 0.6 %; Eosinophils # 0.1 10^3/uL (0.0-0.8); Eosinophils % 0.7 %; Hematocrit 35.5 % (37-53); Lymphocytes # 0.5 10^3/uL (0.8-4.8); Lymphocytes % 7.9 %; Mean Corpuscular HGB Conc 33.5 g/dL (30-55); Mean Corpuscular Hemoglobin 31.1 pg (27-33); Mean Corpuscular Volume 92.7 fl (82-101); Monocytes # 1.1 10^3/uL (0.2-0.9); Monocytes % 16.6 %; Neutrophils # 4.92 10^3/uL (1.8-7.7); Neutrophils % 73.5 %; Nucleated Red Blood Cells % 0 %; Platelet Count 139 10^3/cmm (157-399); Red Blood Count 3.83 10^6/uL (3.85-5.65); Red Cell Distribution Width 15.8 % (12.1-15.1)
[2024-10-13 15:55] LABS: Alanine Aminotransferase 32 U/L (0-41); Albumin Level 3.3 g/dL (3.5-5.2); Alkaline Phosphatase 177 U/L (40-130); Aspartate Amino Transferase 43 U/L (0-40); Blood Urea Nitrogen 8 mg/dL (8-23); Calcium 8.4 mg/dL (8.5-10.5); Carbon Dioxide 22 mmol/L (22-29); Chloride 102 mmol/L (98-107); Globulin 3.1 g/dL (1.3-4.6); Glomerular Filtration Rate 167.4 mL/min (90-130); Glucose 143 mg/dL (65-115); Osmolality Calculated 283 mOsm/kg (285-295); Sodium 136 mmol/L (136-145); Total Bilirubin 0.4 mg/dL (0.15-1.2); Total Protein 6.4 g/dL (6.6-8.7)
[2024-10-13 16:01] LABS: Anion Gap 15.7 (5-19); Lactate Dehydrogenase 212 U/L (135-225); Potassium 3.7 mmol/L (3.5-5.1)
== END 2024-10-13 23:59 | disposition home or self-care (01) ==
PROVIDERS: Nurse Practitioner Family; PCP Family Medicine; Visit Provider Internal Medicine Medical Oncology
DX: Z53.9 Procedure and treatment not carried out, unspecified reason (principal); C83.30 Diffuse large B-cell lymphoma, unspecified site
CPT/HCPCS: 36591; 80053; 83615; 85025

== ENCOUNTER 2024-10-21 08:15 | Oncology outpatient (recurring) (ONCR) | payer OTHER, SELFPAY ==
[2024-10-20 14:57] LABS: Basophils # 0.1 10^3/uL (0.0-0.1); Basophils % 1.4 %; Eosinophils % 0.9 %; Hematocrit 35.3 % (37-53); Lymphocytes # 0.5 10^3/uL (0.8-4.8); Lymphocytes % 11.6 %; Mean Corpuscular HGB Conc 33.7 g/dL (30-55); Mean Corpuscular Hemoglobin 31.3 pg (27-33); Mean Corpuscular Volume 92.9 fl (82-101); Mean Platelet Volume 9.4 fL (7.4-10.4); Monocytes # 1.2 10^3/uL (0.2-0.9); Monocytes % 27.9 %; Neutrophils # 2.49 10^3/uL (1.8-7.7); Nucleated Red Blood Cells % 0 %; Platelet Count 205 10^3/cmm (157-399); Red Cell Distribution Width 17.3 % (12.1-15.1)
[2024-10-20 15:14] LABS: Alanine Aminotransferase 33 U/L (0-41); Albumin Level 3.6 g/dL (3.5-5.2); Alkaline Phosphatase 164 U/L (40-130); Blood Urea Nitrogen 5 mg/dL (8-23); Calcium 8.6 mg/dL (8.5-10.5); Carbon Dioxide 26 mmol/L (22-29); Chloride 102 mmol/L (98-107); Globulin 3.1 g/dL (1.3-4.6); Glomerular Filtration Rate 135.6 mL/min (90-130); Glucose 132 mg/dL (65-115); Osmolality Calculated 281 mOsm/kg (285-295); Sodium 136 mmol/L (136-145); Total Bilirubin 0.4 mg/dL (0.15-1.2); Total Protein 6.7 g/dL (6.6-8.7)
[2024-10-20 15:15] LABS: Anion Gap 11.6 (5-19); Aspartate Amino Transferase 51 U/L (0-40); Lactate Dehydrogenase 221 U/L (135-225); Potassium 3.6 mmol/L (3.5-5.1)
[2024-10-21] MEDS: sodium chloride 0.9% 500 ML 75 ML IV (09:12)
[2024-10-21] MEDS: diphenhydrAMINE 50 mg/mL SDV 1mL 25 MG IVP (09:12)
[2024-10-21] MEDS: dexamethasone 4 mg/mL INJ 12 MG IVP (09:13)
[2024-10-21] MEDS: palonosetron 0.25 mg/5 mL SDV IVP (09:13)
[2024-10-21] MEDS: famotidine 20 mg/2 mL INJ IVP (09:13)
[2024-10-21] MEDS: OLANZapine 5 mg TABLET PO (09:14)
[2024-10-21] MEDS: fosaprepitant 150 MG in sodium chloride 0.9% 150 ML 300 MG IV (10:16)
[2024-10-21] MEDS: DOXOrubicin 2 mg/ml MDV 94 MG IVP (14:20)
[2024-10-21] MEDS: CYCLOPHOSPHAMIDE IV (14:32)
[2024-10-21] MEDS: SODIUM CHLORIDE 0.9% IV (14:32)
[2024-10-21] MEDS: sodium chloride 0.9% 250 ML 75 ML IV (15:51)
[2024-10-21] MEDS: pegfilgrastim 6 mg/0.6 mL Kit (onpro) SUBCUT (15:51)
[2024-10-21 16:25] VITALS: BP 134/77; PULSE 76; RESP 17; TEMP 37; O2SAT 93
== END 2024-10-21 23:59 | disposition home or self-care (01) ==
PROVIDERS: Nurse Practitioner Family; PCP Family Medicine; Visit Provider Internal Medicine Medical Oncology
DX: Z53.9 Procedure and treatment not carried out, unspecified reason; Z51.11 Encounter for antineoplastic chemotherapy; Z51.12 Encounter for antineoplastic immunotherapy; C83.30 Diffuse large B-cell lymphoma, unspecified site; Z79.899 Other long term (current) drug therapy
CPT/HCPCS: 36591; 80053; 83615; 85025; 96365; 96367; 96375; 96377; 96409; 96411; 96413; 96415; 96417; J1100; J1200; J1453; J2469; J2506; J3490; J7040; J7050; J9000; J9075; J9370; J9999; Q5115

== ENCOUNTER 2024-11-11 08:48 | Oncology outpatient (recurring) (ONCR) | payer OTHER, SELFPAY ==
[2024-11-11 09:07] LABS: Basophils % 1.1 %; Eosinophils # 0.1 10^3/uL (0.0-0.8); Hematocrit 34.7 % (37-53); Lymphocytes # 0.3 10^3/uL (0.8-4.8); Lymphocytes % 9.1 %; Mean Corpuscular Hemoglobin 32.8 pg (27-33); Mean Corpuscular Volume 96.4 fl (82-101); Mean Platelet Volume 9.2 fL (7.4-10.4); Monocytes # 0.8 10^3/uL (0.2-0.9); Neutrophils # 2.37 10^3/uL (1.8-7.7); Neutrophils % 65.5 %; Nucleated Red Blood Cells % 0 %; Platelet Count 170 10^3/cmm (157-399); Red Cell Distribution Width 18.4 % (12.1-15.1); White Blood Count 3.62 10^3/uL (3.29-11.43)
[2024-11-11 09:27] LABS: Alanine Aminotransferase 27 U/L (0-41); Albumin Level 3.3 g/dL (3.5-5.2); Alkaline Phosphatase 178 U/L (40-130); Anion Gap 11.7 (5-19); Aspartate Amino Transferase 47 U/L (0-40); Blood Urea Nitrogen 5 mg/dL (8-23); Calcium 8.8 mg/dL (8.5-10.5); Carbon Dioxide 28 mmol/L (22-29); Chloride 99 mmol/L (98-107); Globulin 3.3 g/dL (1.3-4.6); Glomerular Filtration Rate 135.6 mL/min (90-130); Glucose 190 mg/dL (65-115); Lactate Dehydrogenase 220 U/L (135-225); Osmolality Calculated 282 mOsm/kg (285-295); Potassium 3.7 mmol/L (3.5-5.1); Sodium 135 mmol/L (136-145); Total Bilirubin 0.6 mg/dL (0.15-1.2); Total Protein 6.6 g/dL (6.6-8.7)
[2024-11-11] MEDS: sodium chloride 0.9% 500 ML 75 ML IV (11:28)
[2024-11-11] MEDS: famotidine 20 mg/2 mL INJ IVP (11:29)
[2024-11-11] MEDS: OLANZapine 5 mg TABLET PO (11:31)
[2024-11-11] MEDS: diphenhydrAMINE 50 mg/mL SDV 1mL 25 MG IVP (11:34)
[2024-11-11] MEDS: palonosetron 0.25 mg/5 mL SDV IVP (11:38)
[2024-11-11] MEDS: dexamethasone 4 mg/mL INJ 12 MG IVP (11:41)
[2024-11-11] MEDS: fosaprepitant 150 MG in sodium chloride 0.9% 150 ML 300 MG IV (11:45)
[2024-11-11] MEDS: DOXOrubicin 2 mg/ml MDV 96 MG IVP (15:23)
[2024-11-11] MEDS: CYCLOPHOSPHAMIDE IV (15:37)
[2024-11-11] MEDS: SODIUM CHLORIDE 0.9% IV (15:37)
[2024-11-11] MEDS: pegfilgrastim 6 mg/0.6 mL Kit (onpro) SUBCUT (17:09)
[2024-11-11 17:19] VITALS: BP 138/79; PULSE 87; TEMP 36.4; O2SAT 93
== END 2024-11-11 23:59 | disposition home or self-care (01) ==
PROVIDERS: PCP Family Medicine; Visit Provider Internal Medicine Medical Oncology
DX: Z51.11 Encounter for antineoplastic chemotherapy (principal); Z51.12 Encounter for antineoplastic immunotherapy; C83.30 Diffuse large B-cell lymphoma, unspecified site; Z79.52 Long term (current) use of systemic steroids; Z79.899 Other long term (current) drug therapy
CPT/HCPCS: 80053; 83615; 85025; 96367; 96375; 96377; 96411; 96413; 96415; 96417; J1100; J1200; J1453; J2469; J2506; J3490; J7040; J9000; J9075; J9370; J9999; Q5115

== ENCOUNTER 2024-11-26 10:40 | Oncology outpatient (recurring) (ONCR) | payer MEDICARE, SELFPAY ==
--- NOTE | 2024-11-21 11:00 | PETR_ITS ---
PROCEDURE INFORMATION: Exam: PET/CT Skull Base to Mid-thigh Exam date and time: 11/21/2024 12:02 PM Age: 63 years old Clinical indication: Condition or disease; Primary cancer: Diffuse large b-cell lymphoma; Prior surgery; Surgery date: 6+ months; Surgery type: Colon x1wk ago, appy LABS AND CLINICAL REPORTS: Glucose: 110 mg/dl Treatment strategy for malignancy (PET staging): Restaging (PS) TECHNIQUE: Imaging protocol: Following at least four-hour fasting and following the injection of radiopharmaceutical, low dose CT images were obtained. Then, PET images were obtained. Attenuation corrected images were constructed using the CT scan. Fused images of PET and CT were reviewed. The standardized uptake values (SUV) reported below are maximum values within a region of interest, expressed in gm/ml. Exam includes orbital meatal line to mid-thigh. SUV normalization method: BodyWeight Radiopharmaceutical: 11.35 mCi F-18 FDG (Fluorodeoxyglucose), IV. Time of imaging post radiopharmaceutical administration: 44 minutes Injection site: RIGHT AC COMPARISON: 1. PT PET skull to thigh INIT [id number] 06/20/2024 1:[address] abdomen wo/w con [id number] 07/11/2024 3:12 PM FINDINGS: Tubes, catheters and devices: Left chest port terminates near the superior cavoatrial junction. Brain: Visualized brain has normal physiologic uptake. Pharynx: No abnormal uptake. Larynx: No abnormal uptake. Lungs, pleura and trachea: No abnormal uptake. Heart: Normal physiologic uptake. Coronary arteries: Mild coronary artery calcification. Mediastinal space: No abnormal uptake. Esophagus: Ckra-dw-mbglietr FDG uptake along the esophagus greatest distally with mild thickening. Liver: No abnormal uptake. Gallbladder and biliary ducts: No abnormal uptake. Pancreas: No abnormal uptake. Previous focal FDG uptake has resolved. Spleen: No abnormal uptake. No splenomegaly. Adrenal glands: No abnormal uptake. Kidneys and ureters: Normal physiologic uptake. Stomach and bowel: Right hemicolectomy without abnormal thickening or FDG uptake at the anastomosis. Decreased FDG uptake along the underdistended rectosigmoid colon is likely benign. Vasculature: No abnormal uptake. Mild systemic atherosclerotic calcification without aortic aneurysm. Lymph nodes: Subcarinal node measures 1.2 cm in the short axis with SUV max 3.2, previously 1.6 cm with SUV max 4.9. No other FDG avid or enlarged mediastinal or hilar lymph nodes. Skeleton: Developed diffuse FDG uptake throughout the axial and proximal appendicular skeletal system without underlying CT abnormality. Previous focal uptake at the posterior right ilium not discretely visualized today. Mild degenerative change along the axial skeletal system and acromioclavicular joints. Soft tissues: No abnormal uptake in the visualized head, neck, chest, abdomen, pelvis, and extremities. Small fat containing left inguinal hernia. METRICS: Mediastinal blood pool: SUV mean 2.1 Liver uptake: SUV mean 2.9 PET/PET skull to thigh SUBS [id number] IMPRESSION: 1. Right hemicolectomy without evidence of residual disease. 2. Decreased mediastinal lymphadenopathy with residual mildly metabolic subcarinal node. Resolved bilateral hilar FDG uptake. 3. Developed FDG uptake throughout the axial and proximal appendicular skeletal system may represent hyperplasia/posttreatment change, lymphomatous infiltration not entirely excluded. 4. FDG uptake along the esophagus greatest distally with mild thickening suggestive of esophagitis. 5. Additional chronic and incidental findings as above.
== END 2024-12-13 23:59 | disposition home or self-care (01) ==
PROVIDERS: PCP Family Medicine; Visit Provider Internal Medicine Medical Oncology
DX: C83.30 Diffuse large B-cell lymphoma, unspecified site (principal); E83.110 Hereditary hemochromatosis; R03.0 Elevated blood-pressure reading, without diagnosis of hypertension; Z95.828 Presence of other vascular implants and grafts
CPT/HCPCS: 78815; 99214; A9552

== ENCOUNTER 2025-01-07 12:50 | Oncology outpatient (recurring) (ONCR) | payer MEDICARE, SELFPAY | END 2025-01-12 23:59 | disposition home or self-care (01) | LOC: ONCMED 12:51 | PROVIDERS: PCP Family Medicine; Visit Provider Internal Medicine Medical Oncology | DX: Z45.2 Encounter for adjustment and management of vascular access device (principal); Z95.828 Presence of other vascular implants and grafts | CPT/HCPCS: 96523 ==

== ENCOUNTER 2025-02-25 11:21 | Oncology outpatient (recurring) (ONCR) | payer MEDICARE, SELFPAY | END 2025-03-15 23:59 | disposition home or self-care (01) | LOC: ONCMED 11:21 | PROVIDERS: PCP Family Medicine; Visit Provider Internal Medicine Medical Oncology | DX: Z45.2 Encounter for adjustment and management of vascular access device (principal); Z95.828 Presence of other vascular implants and grafts | CPT/HCPCS: 96523 ==

== ENCOUNTER 2025-03-24 11:33 | Oncology outpatient (recurring) (ONCR) | payer MEDICARE, SELFPAY ==
--- NOTE | 2025-03-20 08:00 | PETR_ITS ---
PROCEDURE INFORMATION: Exam: PET/CT Skull Base to Mid-thigh Exam date and time: 03/20/2025 4:28 PM Age: 64 years old Clinical indication: Condition or disease; Primary cancer: Diffuse large b-cell lymphoma with involvement of intra-abdominal lymph nodes and the right colon; Prior surgery; Surgery date: 6+ months; Surgery type: Colon, appy LABS AND CLINICAL REPORTS: Glucose: 110 mg/dl Treatment strategy for malignancy (PET staging): Restaging (PS) TECHNIQUE: Imaging protocol: Following at least four-hour fasting and following the injection of radiopharmaceutical, low dose CT images were obtained. Then, PET images were obtained. Attenuation corrected images were constructed using the CT scan. Fused images of PET and CT were reviewed. The standardized uptake values (SUV) reported below are maximum values within a region of interest, expressed in gm/ml. Exam includes orbital meatal line to mid-thigh. SUV normalization method: BodyWeight Radiopharmaceutical: 10.96 mCi F-18 FDG (Fluorodeoxyglucose), IV. Time of imaging post radiopharmaceutical administration: 45 minutes Injection site: right ac COMPARISON: PT PET skull to thigh SUBS [id number] 11/21/2024 FINDINGS: Tubes, catheters and devices: Port catheter placed via the left subclavian vein terminates in the superior vena cava. Brain: On the nondedicated limited brain images there is no abnormal distribution of the radiotracer in the faye and white matter. Pharynx: Normal distribution of the radiotracer in nasopharyngeal, and oropharyngeal structures. Larynx: Bilateral symmetric uptake compatible with benign physiologic finding. Lungs, pleura and trachea: No abnormal uptake. No lung nodules or masses. No pleural effusion. Heart: Normal physiologic uptake. There is no cardiomegaly. Coronary artery calcification is present. There is no pericardial effusion. Mediastinal space: No abnormal uptake. Liver: Normal size without abnormal radiotracer uptake. Gallbladder and biliary ducts: No abnormal uptake. Pancreas: Normal distribution of radiotracer. Spleen: Normal size without abnormal radiotracer uptake. Adrenal glands: No abnormal uptake. No nodules. Kidneys and ureters: Normal physiologic uptake. No hydronephrosis. Stomach and bowel: Long segment of increased uptake in the sigmoid and descending colon without corresponding CT abnormality is benign. Stable changes after right hemicolectomy with no abnormality in the ileocolic anastomosis. No abnormal dilatation of the bowel. Vasculature: No abnormal uptake. No aortic aneurysm. Lymph nodes: No abnormal uptake. No lymphadenopathy in the head, neck, chest, abdomen, pelvis, and extremities. Skeleton: No abnormal uptake in the visualized axial and appendicular skeleton. Soft tissues: No abnormal uptake in the visualized head, neck, chest, abdomen, pelvis, and extremities. METRICS: Mediastinal blood pool maximal uptake is 2.4 SUV. Liver maximal uptake is 3.3 SUV. PET/PET skull to thigh SUBS [id number] IMPRESSION: No abnormal radiotracer uptake. The response score is 1 based on Deauville 5 point scale.
[2025-03-24 12:00] LABS: Hematocrit 38.3 % (37-53); Hemoglobin 13.30 g/dL (11.27-16.99); Mean Corpuscular HGB Conc 34.7 g/dL (30-55); Mean Corpuscular Hemoglobin 35.4 pg (27-33); Mean Corpuscular Volume 101.9 fl (82-101); Nucleated Red Blood Cells % 0 %; Platelet Count 154 10^3/cmm (157-399); Red Blood Count 3.76 10^6/uL (3.85-5.65); White Blood Count 3.43 10^3/uL (3.29-11.43)
[2025-03-24 12:15] LABS: Alanine Aminotransferase 30 U/L (0-41); Albumin Level 3.6 g/dL (3.5-5.2); Alkaline Phosphatase 175 U/L (40-130); Anion Gap 9.9 (5-19); Aspartate Amino Transferase 55 U/L (0-40); Blood Urea Nitrogen 7 mg/dL (8-23); Calcium 9.2 mg/dL (8.5-10.5); Carbon Dioxide 25 mmol/L (22-29); Chloride 105 mmol/L (98-107); Globulin 3.3 g/dL (1.3-4.6); Glucose 88 mg/dL (65-115); Osmolality Calculated 279 mOsm/kg (285-295); Potassium 3.9 mmol/L (3.5-5.1); Sodium 136 mmol/L (136-145); Total Protein 6.9 g/dL (6.6-8.7)
== END 2025-04-14 23:59 | disposition home or self-care (01) ==
PROVIDERS: Nurse Practitioner Family; PCP Family Medicine; Visit Provider Internal Medicine Medical Oncology
DX: C83.30 Diffuse large B-cell lymphoma, unspecified site; Z95.828 Presence of other vascular implants and grafts; Z83.49 Family history of other endocrine, nutritional and metabolic diseases; Z53.9 Procedure and treatment not carried out, unspecified reason
CPT/HCPCS: 36591; 78815; 80053; 83615; 85025; 99214; A9552

== ENCOUNTER → 2025-03-25 07:57 | Outpatient (BNVA) | payer MEDICARE, SELFPAY | PROVIDERS: PCP Family Medicine; Visit Provider Surgery | DX: Z95.828 Presence of other vascular implants and grafts (principal) | CPT/HCPCS: 99214 ==

== ENCOUNTER 2025-04-13 08:52 | Day surgery (SDC) | payer MEDICARE, SELFPAY ==
[2025-04-13] VITALS (9 sets, daily range): BP systolic 120–140; BP diastolic 64–85; PULSE 70–80; RESP 12–18; TEMP 36.4–36.6; O2SAT 94–98
--- NOTE | 2025-04-13 09:32 | P.HPUD_ITS ---
Surgery/Procedure H&P Update DATE OF PROCEDURE: April 13, 2025 DATE H&P PERFORMED: 03/25/25 H&P UPDATE INFORMATION: I have reviewed H&P completed within last 30 days, I have examined patient prior to procedure, No changes to prior documentation, H&P is in [facility] EMR on date indicated and Risks and benefits of the procedure reviewed PLANNED PROCEDURE: Operation Date: 04/13/25 10:35 Proposed Procedures p Portacath Removal [id number] [id number](Not Applicable) - Sherman Alex MD
--- NOTE | 2025-04-13 09:48 | P.ANESASSM_ITS ---
Pre-Anesthetic Assessment Height/Weight: Height 5 ft 6 in O2 Del Method Room Air 04/13/25 09:26 Preop Diagnosis: Completed chemotherapy requesting port removal Operation Date: 04/13/25 10:35 Proposed Procedures p Portacath Removal [id number] [id number](Not Applicable) - Sherman Alex MD Was Beta [place] taken within 24 hours: N/A Was Clonidine taken within 24 hours: N/A Last intake: Intake Last Liquid Date 04/12/25 Last Liquid Time 20:00 Last Solid Date 04/12/25 Last Solid Time 12:00 Social No alcohol and No tobacco Exam alert, oriented x 3, clear to auscultation bilaterally and regular rate & rhythm Airway Submandibular: within normal limits Cervical ROM: within normal limits Mallampati: Class I Dentition: full Comments: Comments: James Anesthetic Plan ASA status: 3 Anesthesia: MAC Other: No prior issues with anesthesia NPO since yesterday evening S/p hemicolectomy for B-cell lymphoma. Completed chemotherapy. Plan with heme- onc is to follow-up with scans in 6 months History of hemochromatosis Labs reviewed from 03/24/2025 and acceptable for procedure. Hemoglobin 13.3 Echo performed June 2024 showing EF of 59% with no RWMA Plan for MAC anesthesia with local via surgeon Medications/Allergies Home Medications ?Medication ?Instructions ?Recorded ?Confirmed ?Last Taken ?Type multivitamin 1 tab PO DAILY 11/21/2103/1704/09/25 History lithium aspartate 5 mg capsule 5 mg PO DAILY 05/01/24 04/09/25 04/09/25 History sildenafil 100 mg tablet mg 04/13/25 Unknown History Allergies Allergy/AdvReac Type Severity Reaction Status Date / Time No Known Allergies Allergy Verified 04/09/25 10:48 [facility] Anesthesia Medical History Port-A-Cath in place 06/11/24 Dr Mason 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 Surgical History H/O arthroscopic knee surgery H/O eye surgery Left eye - muscle in eye ajusted Family History Mother Cancer Lymphoma Hypertension Denies family history of Diabetes CAD (coronary artery disease) Clotting disorder Dementia Hyperlipidemia Psychiatric illness Chronic kidney disease (CKD) Suicide Anesthesia complication Bleeding disorder Lung disease Stroke Social History Smoking and tobacco/nicotine status: never used tobacco/nicotine Alcohol intake: current Alcohol intake frequency: holidays/special occasions only Substance/Drug Use: never Data Anesthesia Cardiac Studies: Echocardiogram 06/23/24
[2025-04-13] MEDS: ceFAZolin 2,000 mg SDV 2000 MG IVP (10:34)
[2025-04-13] MEDS: lidocaine-epi 1% 20 mL INJ INJECTION (10:54)
[2025-04-13] MEDS: BUPivacaine 0.25% INJ 10 mL INJECTION (10:54)
--- NOTE | 2025-04-13 11:03 | P.OP_ITS ---
Operative Report Date of procedure: April 13, 2025 Pre-op diagnosis: History of colon cancer Post-op diagnosis: Same Post-op findings: Left subclavian port in place Procedure done: Excision of left subclavian Port-A-Cath Implants: None Specimens removed/disposition: None Surgeon: Sherman Alex MD Laboratory Animal Care Veterinarian: [facility]EL[facility] OR Staff Estimated blood loss: 5 Brief History: This is a 64-year-old male who presented to my office for removal of Port-A-Cath for completed therapy for colon cancer. After discussion of all risk benefits as documented in my preop note we decided to proceed Procedure: Patient was brought into the OR, he was placed in a supine position. Monitored anesthesia was initiated. The left upper chest was prepped and draped in usual sterile fashion. Timeout was conducted. Local anesthesia was infiltrated around the port. A 3 cm incision was done overlying the area of previous incision. The incision was deepened until the capsule was identified, the capsule was opened with electrocautery and the port was exposed. The port was delivered through the wound and then removed without difficulty. The tract of the catheter was obliterated with a #3-0 Vicryl suture. The capsule was then excised with the Metzenbaum scissor to prevent seroma formation. Hemostasis was achieved. The wound was irrigated. The wound was then closed in layers using #3 Vicryl for the subcutaneous tissue and #4 Monocryl for the skin. Dermabond was applied. A compressive sterile dressing was placed. At the end of the procedure all counts were correct the patient tolerated well the procedure was transferred to PACU in stable condition.
--- NOTE | 2025-04-13 12:35 | ANE.PACU2 ---
Inpatient post-anesthesia follow up: Airway intact: Yes Vital signs: Temperature 97.8 F Pulse Rate 73 Respiratory Rate 17 Blood Pressure 130/82 Pulse Oximetry 96 Oxygen Delivery Me thod Room Air Oxygen Flow Rate 0 Fraction of Inspir ed Oxygen Hydration adequate: Yes Nausea and vomiting: No Pain level: 1 Mental status: Baseline
== END 2025-04-13 12:35 | disposition home or self-care (01) ==
PROVIDERS: PCP Family Medicine; Visit Provider Surgery
PROC: (CPT 36589; principal; 2025-04-13 10:35)
DX: Z85.038 Personal history of other malignant neoplasm of large intestine (principal); Z80.7 Family history of other malignant neoplasms of lymphoid, hematopoietic and related tissues
CPT/HCPCS: 36590; J0690; J1100; J2405; J2704; J3010; J3490; J7030; J9999

== ENCOUNTER → 2025-04-29 14:48 | Outpatient (BNVA) | payer MEDICARE, SELFPAY | PROVIDERS: PCP Family Medicine; Visit Provider Surgery | DX: R03.0 Elevated blood-pressure reading, without diagnosis of hypertension (principal) | CPT/HCPCS: 99213 ==